=== PATIENT | female | born 2000 | race Caucasian/White ===

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

== ENCOUNTER 2020-01-08 15:32 | Emergency (ER) | payer MEDICAID | END 2020-01-08 15:50 | disposition left against medical advice (07) | LOC: JD.ED 15:32 | DX: Z53.21 Procedure and treatment not carried out due to patient leaving prior to being seen by health care provider (principal) ==

== ENCOUNTER 2020-07-29 13:37 | Emergency (ER) | payer MEDICAID ==
[2020-07-29 13:53] VITALS: BP 123/78; PULSE 103
[2020-07-29] MEDS ORDERED: Acetaminophen 325 MG Tab PO ONE (14:06)
--- NOTE | 2020-07-29 15:08 | EDM.PDOC ---
ED HPI GENERAL MEDICAL PROBLEM - General Chief Complaint: ENT Problem Stated Complaint: BACK PAIN Time Seen by Provider: 07/29/20 13:40 Source of Information: Reports: Patient, RN Notes Reviewed History Limitations: Reports: No Limitations - History of Present Illness INITIAL COMMENTS - FREE TEXT/NARRATIVE: Patient is a 20-year-old female presenting to the emergency department with complaints of pain and swelling to her right tongue as well as upper back pain. She states upon waking this morning, she had pain to her tongue. She found teeth castle on her tongue and progressively throughout the day bruising has developed. She also has upper back pain with movement. She is had no known injury. Patient is 8 weeks . Denies any history of seizures. States last evening her 3-year-old son slept with her and that he did not alert her of any abnormal occurrences. Upon waking this morning, she felt normal other than the tongue pain and back pain. 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 Psychiatric History: Reports: Anxiety, Depression - Infectious Disease History Infectious Disease History: Reports: Herpes - Past Surgical History GI Surgical History: Reports: EGD Social & Family History - Family History Family Medical History: No Pertinent Family History - Tobacco Use Tobacco Use Status *Q: Current Every Day Tobacco User Years of Tobacco use: 2 Packs/Tins Daily: 0.2 - Caffeine Use Caffeine Use: Reports: None - Recreational Drug Use Recreational Drug Use: No - Living Situation & Occupation Living situation: Reports: Other ED ROS ENT - Review of Systems Review Of Systems: See Below Constitutional: Reports: No Symptoms. Denies: Fever, Chills, Fatigue HEENT: Reports: Other (Tongue pain and swelling) Respiratory: Reports: No Symptoms Cardiovascular: Reports: No Symptoms Endocrine: Reports: No Symptoms GI/Abdominal: Reports: No Symptoms : Reports: No Symptoms Musculoskeletal: Reports: Back Pain (Upper) Skin: Reports: No Symptoms Neurological: Reports: No Symptoms. Denies: Dizziness, Headache, Seizure Psychiatric: Reports: No Symptoms Hematologic/Lymphatic: Reports: No Symptoms Immunologic: Reports: No Symptoms ED EXAM, ENT - Physical Exam Exam: See Below General Appearance: Alert, WD/WN, No Apparent Distress Eye Exam: Bilateral Eye: Normal Inspection, PERRL Mouth/Throat: Normal Gums, Normal Lips, Normal Oropharynx, Normal Teeth, Tongue Swelling (Right side with mild ecchymosis and teeth castle) Head: Atraumatic, Normocephalic Respiratory/Chest: No Respiratory Distress, Lungs Clear, Normal Breath Sounds, No Accessory Muscle Use, Chest Non-Tender Cardiovascular: Normal Peripheral Pulses, Regular Rate, Rhythm, No Edema, No Gallop, No JVD, No Murmur, No Rub GI/Abdominal: Normal Bowel Sounds, Soft, Non-Tender, No Organomegaly, No Distention, No Abnormal Bruit, No Mass Back: Normal Inspection, Full Range of Motion Neurological: Alert, Oriented, CN II-XII Intact, Normal Cognition, Normal Gait, Normal Reflexes, No Motor/Sensory Deficits Psychiatric: Normal Affect, Normal Mood Skin: Warm, Dry, Intact, Normal Color, No Rash Course - Vital Signs Last Recorded V/S: Last Vital Signs Temp 99.5 F 07/29/20 13:46 Pulse 103 H 07/29/20 13:46 Resp 16 07/29/20 13:46 BP 123/78 07/29/20 13:46 Pulse Ox 98 07/29/20 13:46 - Orders/Labs/Meds Labs: Laboratory Tests 07/29/20 07/29/20 07/29/20 Range/Units 14:17 14:17 14:17 WBC 12.28 H (3.98-10.04) K/mm3 RBC 4.22 (3.98-5.22) M/mm3 Hgb 12.4 (11.2-15.7) gm/dl Hct 37.7 (34.1-44.9) % MCV 89.3 D (79.4-94.8) fl MCH 29.4 (25.6-32.2) pg MCHC 32.9 (32.2-35.5) g/dl RDW Std Deviation 42.0 (36.4-46.3) fL Plt Count 346 D (182-369) K/mm3 MPV 9.8 (9.4-12.3) fl Neut % (Auto) 80.0 H (34.0-71.1) % Lymph % (Auto) 13.2 L (19.3-51.7) % [place] % (Auto) 5.8 (4.7-12.5) % Eos % (Auto) 0.3 L (0.7-5.8) Baso % (Auto) 0.2 (0.1-1.2) % Neut # (Auto) 9.83 H (1.56-6.13) K/mm3 Lymph # (Auto) 1.62 (1.18-3.74) K/mm3 [place] # (Auto) 0.71 H (0.24-0.36) K/mm3 Eos # (Auto) 0.04 (0.04-0.36) K/mm3 Baso # (Auto) 0.02 (0.01-0.08) K/mm3 Sodium 139 (136-145) mEq/L Potassium 4.0 (3.5-5.1) mEq/L Chloride 103 (98-107) mEq/L Carbon Dioxide 24 (21-32) mEq/L Anion Gap 16.0 H (5-15) BUN 7 (7-18) mg/dL Creatinine 0.9 (0.55-1.02) mg/dL Est Cr Clr Drug Dosing 82.48 mL/min Estimated GFR (MDRD) > 60 (>60) mL/min BUN/Creatinine Ratio 7.8 L (14-18) Glucose 89 (74-106) mg/dL Lactic Acid 1.2 (0.4-2.0) mmol/L Calcium 8.9 (8.5-10.1) mg/dL Total Bilirubin 0.2 (0.2-1.0) mg/dL AST 23 (15-37) U/L ALT 22 (14-59) U/L Alkaline Phosphatase 45 L (46-116) U/L C-Reactive Protein 0.8 (<1.0) mg/dL Total Protein 7.2 (6.4-8.2) g/dl Albumin 2.9 L (3.4-5.0) g/dl Globulin 4.3 gm/dL Albumin/Globulin Ratio 0.7 L (1-2) Urine Color (Yellow) Urine Appearance (Clear) Urine pH (5.0-8.0) Ur Specific [place] (1.005-1.030) Urine Protein (Negative) Urine Glucose (UA) (Negative) Urine Ketones (Negative) Urine Occult Blood (Negative) Urine Nitrite (Negative) Urine Bilirubin (Negative) Urine Urobilinogen (0.2-1.0) Ur Leukocyte Esterase (Negative) Urine RBC (0-5) /hpf Urine WBC (0-5) /hpf Ur Squamous Epith Cells (0-5) /hpf Urine Bacteria (FEW) /hpf Urine Mucus (FEW) /hpf 07/29/20 Range/Units 14:30 WBC (3.98-10.04) K/mm3 RBC (3.98-5.22) M/mm3 Hgb (11.2-15.7) gm/dl Hct (34.1-44.9) % MCV (79.4-94.8) fl MCH (25.6-32.2) pg MCHC (32.2-35.5) g/dl RDW Std Deviation (36.4-46.3) fL Plt Count (182-369) K/mm3 MPV (9.4-12.3) fl Neut % (Auto) (34.0-71.1) % Lymph % (Auto) (19.3-51.7) % [place] % (Auto) (4.7-12.5) % Eos % (Auto) (0.7-5.8) Baso % (Auto) (0.1-1.2) % Neut # (Auto) (1.56-6.13) K/mm3 Lymph # (Auto) (1.18-3.74) K/mm3 [place] # (Auto) (0.24-0.36) K/mm3 Eos # (Auto) (0.04-0.36) K/mm3 Baso # (Auto) (0.01-0.08) K/mm3 Sodium (136-145) mEq/L Potassium (3.5-5.1) mEq/L Chloride (98-107) mEq/L Carbon Dioxide (21-32) mEq/L Anion Gap (5-15) BUN (7-18) mg/dL Creatinine (0.55-1.02) mg/dL Est Cr Clr Drug Dosing mL/min Estimated GFR (MDRD) (>60) mL/min BUN/Creatinine Ratio (14-18) Glucose (74-106) mg/dL Lactic Acid (0.4-2.0) mmol/L Calcium (8.5-10.1) mg/dL Total Bilirubin (0.2-1.0) mg/dL AST (15-37) U/L ALT (14-59) U/L Alkaline Phosphatase (46-116) U/L C-Reactive Protein (<1.0) mg/dL Total Protein (6.4-8.2) g/dl Albumin (3.4-5.0) g/dl Globulin gm/dL Albumin/Globulin Ratio (1-2) Urine Color Yellow (Yellow) Urine Appearance Clear (Clear) Urine pH 7.0 (5.0-8.0) Ur Specific [place] 1.020 (1.005-1.030) Urine Protein Negative (Negative) Urine Glucose (UA) Negative (Negative) Urine Ketones Negative (Negative) Urine Occult Blood Negative (Negative) Urine Nitrite Negative (Negative) Urine Bilirubin Negative (Negative) Urine Urobilinogen 0.2 (0.2-1.0) Ur Leukocyte Esterase Negative (Negative) Urine RBC 0-5 (0-5) /hpf Urine WBC 0-5 (0-5) /hpf Ur Squamous Epith Cells 0-5 (0-5) /hpf Urine Bacteria Few (FEW) /hpf Urine Mucus Few (FEW) /hpf Meds: Medications Discontinued Medications Generic Name Dose Route Start Last Admin Trade Name Freq PRN Reason Stop Dose Admin Acetaminophen 650 mg 07/29/20 14:06 07/29/20 14:11 Tylenol PO 07/29/20 14:07 650 mg NOW ONE Administration - Re-Assessments/Exams Free Text/Narrative Re-Assessment/Exam: Patient is a 20-year-old female presenting to the emergency department with complaints of tongue pain and swelling and upper back pain. She awoke with these complaints this morning. She has no history of seizures and there was no witnessed seizure activity. She states that her 3-year-old son slept with her last evening and did not alert her to anything abnormal. She felt well upon waking. She is 8 weeks , therefore head CT would not be recommended in the absence of any witnessed seizure activity and no headache. A complete blood work including CBC, CMP, CRP, lactic acid, and urinalysis. If she did have a seizure, we should expect to see an elevation in her lactic acid. 07/29/20 15:10 Hematology was grossly unremarkable. Lactic acid was normal at 1.2. I will recommend routine Tylenol administration for discomfort as well as sucking on ice. Recommend follow-up with her primary care provider on Friday to discuss today's occurrences and for ongoing monitoring. Discussed return precautions. Discharge instructions as documented. Departure - Departure Time of Disposition: 15:15 Disposition: Home, Self-Care 01 Condition: Good Clinical Impression: Tongue biting Back pain Qualifiers: Back pain location: thoracic back pain Chronicity: acute Back pain laterality: unspecified Qualified Code(s): M54.6 - Pain in thoracic spine - Discharge Information *PRESCRIPTION DRUG MONITORING PROGRAM REVIEWED*: No *COPY OF PRESCRIPTION DRUG MONITORING REPORT IN PATIENT ADOLFO: No Instructions: Back Pain in Referrals: Jaclyn Maloney PA-C [Primary Care Provider] - Forms: ED Department Discharge Additional Instructions: You were seen in the emergency department today for evaluation with regards to tongue pain and swelling after likely biting her tongue as well as upper back pain. Your exam aside from the swelling of your tongue was found to be normal. Blood work was completed and found to be overall normal. There are no suggestions within your blood work that you had a seizure. Since you are and there was no witnessed seizure activity or significant concern for seizure activity, head CT was not completed today as to avoid risk of radiating your unborn child. Recommend routine Tylenol administration. You may suck on ice cubes to help alleviate the swelling of the tongue. Recommend follow-up with your primary care provider on Friday to discuss today's occurrences and the possibility of testing for possible seizure activity that does not include radiation such as an EEG. Return to ER for any new or worsening symptoms of concern. Sepsis Event Note (ED) - Evaluation Sepsis Screening Result: No Definite Risk
== END 2020-07-29 15:25 | disposition home or self-care (01) ==
LOC: JD.ED 13:37
DX: S00.532A Contusion of oral cavity, initial encounter (principal); M54.6 Pain in thoracic spine; Z72.0 Tobacco use; X58.XXXA Exposure to other specified factors, initial encounter
CPT/HCPCS: 36415; 80053; 81001; 83605; 85025; 86140; 99283; A9270

== ENCOUNTER 2020-09-03 22:26 | Emergency (ER) | payer MEDICAID ==
[2020-09-03 22:36] VITALS: BP 120/80; PULSE 97
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
== END 2020-09-04 00:48 | disposition home or self-care (01) ==
LOC: JD.ED 22:26
DX: O99.891 Other specified diseases and conditions complicating pregnancy (principal); R55 Syncope and collapse; R10.32 Left lower quadrant pain; Z72.0 Tobacco use; Z3A.14 14 weeks gestation of pregnancy
CPT/HCPCS: 36415; 80053; 80306; 80307; 82550; 82962; 83735; 84100; 85007; 85027; 99283; 99284

== ENCOUNTER 2020-09-21 00:22 | Emergency (ER) | payer MEDICAID ==
[2020-09-21 00:31] VITALS: BP 125/90; PULSE 127
[2020-09-21] MEDS ORDERED: Ondansetron 4 MG/2 ML SDV IVPUSH ONE (01:01)
[2020-09-21] MEDS ORDERED: Lactated Ringers 1,000 ML IV ONE (01:01)
--- NOTE | 2020-09-21 03:50 | EDM.PDOC ---
ED HPI GENERAL MEDICAL PROBLEM - General Chief Complaint: Gastrointestinal Problem Stated Complaint: [facility] Time Seen by Provider: 09/21/20 03:40 - History of Present Illness INITIAL COMMENTS - FREE TEXT/NARRATIVE: 22-year-old female brought into the emergency room by EMS with an initial complaint of nausea and vomiting. Upon arrival to the emergency department she was started on IV fluids given some Zofran and felt quite a bit better. Because of emergencies in the emergency room it took me a while to get to the patient by the time I got to where she was feeling okay and states that she has been having problems with seizures for the last several months. She has an appointment to see a neurologist in November. The patient is currently 17 weeks gestation. She is a 3 para 2 1 premature twin delivery fetuses did not survive then she has 1 child living with her. The patient does not remember what happened tonight. Patient has had multiple episodes of not remembering and possible seizure activity. She has a video of 1 of these episodes that possibly could represent a seizure. The patient has not had an EEG. Her knurling machine operator, Dr. Lara has advised her to see a neurologist. Then she sees Elisa Maloney in the clinic as well. On her last visit here she was given a specific person and phone number to follow-up with however it is not clear to me that the patient is followed up with this. At the time my exam the patient is doing okay lab work is nondiagnostic and she has no specific complaints. - Related Data Allergies Allergy/AdvReac Type Severity Reaction Status Date / Time No Known Allergies Allergy Verified 09/21/20 00:31 Home Meds: Home Meds Pnv No.95/Ferrous Fum/Folic AC [ Caplet] 1 tab PO DAILY 07/29/20 [History] Past Medical History HEENT History: Reports: Impaired Vision Other HEENT History: wears glasses Gastrointestinal History: Reports: Gastritis WARP DRAWER History: Reports: , Spontaneous Other WARP DRAWER History: A0 Psychiatric History: Reports: Anxiety, Depression - Infectious Disease History Infectious Disease History: Reports: Herpes - Past Surgical History HEENT Surgical History: Reports: Oral Surgery GI Surgical History: Reports: EGD Female Surgical History: Reports: Section, Other (See Below) Other Female Surgeries/Procedures: fetoscopic laser surgery Social & Family History - Family History Family Medical History: No Pertinent Family History - Tobacco Use Tobacco Use Status *Q: Current Every Day Tobacco User Years of Tobacco use: 2 Packs/Tins Daily: 0.5 - Caffeine Use Caffeine Use: Reports: None - Recreational Drug Use Recreational Drug Use: No - Living Situation & Occupation Living situation: Reports: Single, with Significant Other (Fianc), with Family (Son) Occupation: Unemployed ED ROS GENERAL - Review of Systems Review Of Systems: See Below Constitutional: Reports: No Symptoms HEENT: Reports: No Symptoms Respiratory: Reports: No Symptoms Cardiovascular: Reports: No Symptoms Endocrine: Reports: No Symptoms GI/Abdominal: Reports: No Symptoms : Reports: No Symptoms Musculoskeletal: Reports: No Symptoms Skin: Reports: No Symptoms Neurological: Reports: Seizure (Possible seizure-like episodes) Psychiatric: Reports: No Symptoms Hematologic/Lymphatic: Reports: No Symptoms Immunologic: Reports: No Symptoms ED EXAM - Physical Exam Exam: See Below Exam Limited By: No Limitations General Appearance: Alert, No Apparent Distress Ears: Normal External Exam, Normal Canal, Hearing Grossly Normal, Normal TMs Nose: Normal Inspection, Normal Mucosa, No Blood Throat/Mouth: Normal Inspection, Normal Lips, Normal Teeth, Normal Gums, Normal Oropharynx, Normal Voice, No Airway Compromise Head: Atraumatic, Normocephalic Neck: Normal Inspection, Supple, Non-Tender, Full Range of Motion Respiratory/Chest: No Respiratory Distress, Lungs Clear, Normal Breath Sounds, No Accessory Muscle Use, Chest Non-Tender Cardiovascular: Normal Peripheral Pulses, Regular Rate, Rhythm, No Edema, No Gallop, No JVD, No Murmur, No Rub GI/Abdominal Exam: Normal Bowel Sounds, Soft, Non-Tender, No Organomegaly, No Distention, No Abnormal Bruit, No Mass, Pelvis Stable, Other (Fundal height is consistent with dates) Heart Tones: Present Heart Tones per Min: 150 Course - Vital Signs Last Recorded V/S: Last Vital Signs Temp 36.1 C 09/21/20 00:29 Pulse 127 H 09/21/20 00:29 Resp 16 09/21/20 00:29 BP 125/90 09/21/20 00:29 Pulse Ox 95 09/21/20 00:29 - Orders/Labs/Meds Labs: Laboratory Tests 09/21/20 09/21/20 09/21/20 Range/Units 01:18 01:18 01:30 WBC 13.00 H (3.98-10.04) K/mm3 RBC 4.04 (3.98-5.22) M/mm3 Hgb 12.5 (11.2-15.7) gm/dl Hct 36.1 (34.1-44.9) % MCV 89.4 (79.4-94.8) fl MCH 30.9 (25.6-32.2) pg MCHC 34.6 (32.2-35.5) g/dl RDW Std Deviation 43.0 (36.4-46.3) fL Plt Count 282 (182-369) K/mm3 MPV 10.1 (9.4-12.3) fl Neut % (Auto) 78.8 H (34.0-71.1) % Lymph % (Auto) 14.2 L (19.3-51.7) % [place] % (Auto) 5.1 (4.7-12.5) % Eos % (Auto) 1.2 (0.7-5.8) Baso % (Auto) 0.2 (0.1-1.2) % Neut # (Auto) 10.25 H (1.56-6.13) K/mm3 Lymph # (Auto) 1.85 (1.18-3.74) K/mm3 [place] # (Auto) 0.66 H (0.24-0.36) K/mm3 Eos # (Auto) 0.16 (0.04-0.36) K/mm3 Baso # (Auto) 0.02 (0.01-0.08) K/mm3 Manual Slide Review Normal smear Sodium 137 (136-145) mEq/L Potassium 3.8 (3.5-5.1) mEq/L Chloride 104 (98-107) mEq/L Carbon Dioxide 22 (21-32) mEq/L Anion Gap 14.8 (5-15) BUN 10 (7-18) mg/dL Creatinine 0.8 (0.55-1.02) mg/dL Est Cr Clr Drug Dosing TNP Estimated GFR (MDRD) > 60 (>60) mL/min BUN/Creatinine Ratio 12.5 L (14-18) Glucose 85 (74-106) mg/dL Calcium 8.4 L (8.5-10.1) mg/dL Total Bilirubin 0.2 (0.2-1.0) mg/dL AST 15 (15-37) U/L ALT 20 (14-59) U/L Alkaline Phosphatase 38 L (46-116) U/L Total Protein 7.4 (6.4-8.2) g/dl Albumin 3.1 L (3.4-5.0) g/dl Globulin 4.3 gm/dL Albumin/Globulin Ratio 0.7 L (1-2) Urine Color Yellow (Yellow) Urine Appearance Clear (Clear) Urine pH 6.0 (5.0-8.0) Ur Specific [place] > or = 1.030 (1.005-1.030) Urine Protein 1+ H (Negative) Urine Glucose (UA) Negative (Negative) Urine Ketones Trace H (Negative) Urine Occult Blood Negative (Negative) Urine Nitrite Negative (Negative) Urine Bilirubin Negative (Negative) Urine Urobilinogen 0.2 (0.2-1.0) Ur Leukocyte Esterase Negative (Negative) Urine RBC Not seen (0-5) /hpf Urine WBC 0-5 (0-5) /hpf Ur Squamous Epith Cells 5-10 H (0-5) /hpf Urine Bacteria Few (FEW) /hpf Urine Mucus Few (FEW) /hpf Urine Opiates Screen (PVQEYT=819) Ur Buprenorphine Scrn (CUTOFF=10) Ur Oxycodone Screen (AOZ6QU=009) Urine Methadone Screen (UPRZOE=315) Ur Propoxyphene Screen (CSLNYY=131) Ur Barbiturates Screen (QKWWEJ=364) Ur Tricyclics Screen (JSVMWL=870) Ur Phencyclidine Scrn (CUTOFF=25) Ur Amphetamine Screen (IMKIOJ=526) U Methamphetamines Scrn (VJGYPY=285) U Benzodiazepines Scrn (CTNXSL=673) U Cocaine Metab Screen (VQDBMH=208) U Marijuana (THC) Screen (CUTOFF=50) 09/21/20 Range/Units 01:30 WBC (3.98-10.04) K/mm3 RBC (3.98-5.22) M/mm3 Hgb (11.2-15.7) gm/dl Hct (34.1-44.9) % MCV (79.4-94.8) fl MCH (25.6-32.2) pg MCHC (32.2-35.5) g/dl RDW Std Deviation (36.4-46.3) fL Plt Count (182-369) K/mm3 MPV (9.4-12.3) fl Neut % (Auto) (34.0-71.1) % Lymph % (Auto) (19.3-51.7) % [place] % (Auto) (4.7-12.5) % Eos % (Auto) (0.7-5.8) Baso % (Auto) (0.1-1.2) % Neut # (Auto) (1.56-6.13) K/mm3 Lymph # (Auto) (1.18-3.74) K/mm3 [place] # (Auto) (0.24-0.36) K/mm3 Eos # (Auto) (0.04-0.36) K/mm3 Baso # (Auto) (0.01-0.08) K/mm3 Manual Slide Review Sodium (136-145) mEq/L Potassium (3.5-5.1) mEq/L Chloride (98-107) mEq/L Carbon Dioxide (21-32) mEq/L Anion Gap (5-15) BUN (7-18) mg/dL Creatinine (0.55-1.02) mg/dL Est Cr Clr Drug Dosing Estimated GFR (MDRD) (>60) mL/min BUN/Creatinine Ratio (14-18) Glucose (74-106) mg/dL Calcium (8.5-10.1) mg/dL Total Bilirubin (0.2-1.0) mg/dL AST (15-37) U/L ALT (14-59) U/L Alkaline Phosphatase (46-116) U/L Total Protein (6.4-8.2) g/dl Albumin (3.4-5.0) g/dl Globulin gm/dL Albumin/Globulin Ratio (1-2) Urine Color (Yellow) Urine Appearance (Clear) Urine pH (5.0-8.0) Ur Specific [place] (1.005-1.030) Urine Protein (Negative) Urine Glucose (UA) (Negative) Urine Ketones (Negative) Urine Occult Blood (Negative) Urine Nitrite (Negative) Urine Bilirubin (Negative) Urine Urobilinogen (0.2-1.0) Ur Leukocyte Esterase (Negative) Urine RBC (0-5) /hpf Urine WBC (0-5) /hpf Ur Squamous Epith Cells (0-5) /hpf Urine Bacteria (FEW) /hpf Urine Mucus (FEW) /hpf Urine Opiates Screen Negative (RWPZDM=351) Ur Buprenorphine Scrn Negative (CUTOFF=10) Ur Oxycodone Screen Negative (ZKP6DO=254) Urine Methadone Screen Negative (WEILMU=454) Ur Propoxyphene Screen Negative (TZDJDL=129) Ur Barbiturates Screen Negative (WRVZGC=426) Ur Tricyclics Screen Negative (GONZBR=019) Ur Phencyclidine Scrn Negative (CUTOFF=25) Ur Amphetamine Screen Negative (IVSHUZ=225) U Methamphetamines Scrn Negative (JZIXPE=774) U Benzodiazepines Scrn Negative (UGMWOL=108) U Cocaine Metab Screen Negative (SIUJVL=963) U Marijuana (THC) Screen Negative (CUTOFF=50) Meds: Medications Discontinued Medications Generic Name Dose Route Start Last Admin Trade Name Freq PRN Reason Stop Dose Admin Lactated Ringer's 1,000 mls @ 999 mls/hr 09/21/20 01:01 09/21/20 01:35 Ringers, Lactated IV 09/21/20 02:01 999 mls/hr .BOLUS ONE Administration Ondansetron HCl 4 mg 09/21/20 01:01 09/21/20 01:26 Ondansetron 4 Mg/2 Ml Sdv IVPUSH 09/21/20 01:02 4 mg ONETIME ONE Administration - Re-Assessments/Exams Free Text/Narrative Re-Assessment/Exam: 09/21/20 04:04 Evaluation is nondiagnostic. Skin a mild leukocytosis most likely due to her whether or not she had a seizure is hard to say. The patient states she has neurology appointment in November cannot find anything any sooner but she is going to call around and look. I have discussed this with the patient and have explained to her no uncertain terms she can follow-up with her regular healthcare provider who can schedule her for an EEG which neurology will need in the first place and if indeed looks like she is got an epileptic problem can be started on antiseizure medication. Patient voices understanding with this and will follow up with her regular healthcare provider. Departure - Departure Time of Disposition: 04:05 Disposition: Home, Self-Care 01 Clinical Impression: Nausea and vomiting, Unspecified abnormal involuntary movements - Discharge Information Referrals: PCP,None [Primary Care Provider] - Forms: ED Department Discharge Additional Instructions: Return to the emergency room with any questions problems or worsening symptoms. Follow-up in the clinic with Elisa Maloney. She should be able to schedule you for a EEG. And if this shows seizure activity perhaps get you into see a neurologist sooner than November. Do not drive or operate a motor vehicle until you are cleared to do so by a neurologist. Push lots of fluids. Sepsis Event Note (ED) - Evaluation Sepsis Screening Result: No Definite Risk - Focused Exam Vital Signs: Vital Signs Temp Pulse Resp BP Pulse Ox 09/21/20 00:29 36.1 C 127 H 16 125/90 95
== END 2020-09-21 04:20 | disposition home or self-care (01) ==
LOC: JD.ED 00:22
DX: R11.2 Nausea with vomiting, unspecified (principal); R25.9 Unspecified abnormal involuntary movements; Z72.0 Tobacco use
CPT/HCPCS: 36415; 80053; 80306; 81001; 85025; 96374; 99284; J2405; J7120; 99283

== ENCOUNTER 2020-10-02 17:42 | Emergency (ER) | payer MEDICAID ==
[2020-10-02] MEDS ORDERED: levETIRAcetam 500 MG in Sodium Chloride 0.9% 100 ML IV ONE (17:51)
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
[2020-10-02 20:04] VITALS: BP 97/58; PULSE 97
--- NOTE | 2020-10-02 20:07 | CR ---
Right ankle: 4 views of the right ankle were obtained. Ankle mortise is symmetric. No acute fracture or other bony abnormality is appreciated. Impression: 1. No abnormality is identified on right ankle exam. Diagnostic code #1
== END 2020-10-02 20:00 | disposition home or self-care (01) ==
LOC: JD.ED 17:42
DX: O99.891 Other specified diseases and conditions complicating pregnancy (principal); R56.9 Unspecified convulsions; O9A.212 Injury, poisoning and certain other consequences of external causes complicating pregnancy, second trimester; S93.401A Sprain of unspecified ligament of right ankle, initial encounter; S09.93XA Unspecified injury of face, initial encounter; O99.332 Smoking (tobacco) complicating pregnancy, second trimester; F17.210 Nicotine dependence, cigarettes, uncomplicated; Z79.899 Other long term (current) drug therapy; Z3A.18 18 weeks gestation of pregnancy; W06.XXXA Fall from bed, initial encounter
CPT/HCPCS: 36415; 73610; 80053; 80306; 81001; 83605; 85025; 96365; 99285; J1953; 99284

== ENCOUNTER 2020-10-13 00:46 | Emergency (ER) | payer MEDICAID ==
[2020-10-13 01:03] VITALS: BP 115/81; PULSE 109
--- NOTE | 2020-10-13 01:34 | EDM.PDOC ---
ED HPI GENERAL MEDICAL PROBLEM - General Chief Complaint: OXYACETYLENE CUTTER Problem Stated Complaint: 20 WKS & FELL Time Seen by Provider: 10/13/20 01:24 - History of Present Illness INITIAL COMMENTS - FREE TEXT/NARRATIVE: 20-year-old female presents the emergency room who is 20 weeks for evaluation after falling secondary to a seizure. Patient is not concerned about her seizures. The patient is being followed closely by neurology and they just adjusted her medication. They stopped whenever antiepileptic medications and decrease the dose of her Keppra from 1000 mg twice a day to 750 mg twice a day. The patient's been under a lot of stress today and did have a seizure. She does not have any pain or concerns at this time but is 20 weeks and is concerned about the baby. She is not having any cramping or contractions no bleeding or other vaginal discharge no burning or frequency with urination. Right Hip Pain Score (Numeric/FACES): 5 - Related Data Allergies Allergy/AdvReac Type Severity Reaction Status Date / Time No Known Allergies Allergy Verified 10/13/20 00:56 Home Meds: Home Meds Pnv No.95/Ferrous Fum/Folic AC [ Caplet] 1 tab PO DAILY 07/29/20 [History] levETIRAcetam [Keppra] 750 mg PO BID 10/02/20 [History] Past Medical History HEENT History: Reports: Impaired Vision Other HEENT History: wears glasses Gastrointestinal History: Reports: Gastritis OXYACETYLENE CUTTER History: Reports: , Spontaneous Other OXYACETYLENE CUTTER History: Psychiatric History: Reports: Anxiety, Depression - Infectious Disease History Infectious Disease History: Reports: Herpes - Past Surgical History HEENT Surgical History: Reports: Oral Surgery GI Surgical History: Reports: EGD Female Surgical History: Reports: Section, Other (See Below) Other Female Surgeries/Procedures: fetoscopic laser surgery Social & Family History - Family History Family Medical History: No Pertinent Family History - Tobacco Use Tobacco Use Status *Q: Never Tobacco User Second Hand Smoke Exposure: No - Caffeine Use Caffeine Use: Reports: None - Recreational Drug Use Recreational Drug Use: No - Living Situation & Occupation Living situation: Reports: Single, with Significant Other (Fianc), with Family (Son) Occupation: Unemployed ED ROS PEDIATRIC - Review of Systems Review Of Systems: See Below Constitutional: Reports: No Symptoms HEENT: Reports: No Symptoms Respiratory: Reports: No Symptoms Cardiovascular: Reports: No Symptoms GI/Abdominal: Reports: No Symptoms : Reports: No Symptoms Musculoskeletal: Reports: No Symptoms Skin: Reports: No Symptoms Neurological: Reports: No Symptoms Psychiatric: Reports: No Symptoms Hematologic/Lymphatic: Reports: No Symptoms Immunologic: Reports: No Symptoms ED EXAM, GENERAL (PEDS) - Physical Exam Exam: See Below Exam Limited By: No Limitations General Appearance: No Apparent Distress Eyes: Bilateral: Normal Appearance Ear Exam (Abbreviated): Normal External Exam, Normal Canal, Hearing Grossly Normal, Normal TMs Nose Exam: Normal Inspection, Normal Mucousa, No Blood Mouth/Throat: Normal Inspection, Normal Gums, Normal Lips, Normal Oropharynx, Normal Teeth Head: Atraumatic, Normocephalic Neck: Normal Inspection, Supple, Non-Tender, Full Range of Motion. No: Tender Midline, Thyromegaly, Tender Lateral Respiratory/Chest: No Respiratory Distress, Lungs Clear, Normal Breath Sounds, No Accessory Muscle Use, Chest Non-Tender Cardiovascular: Normal Peripheral Pulses, Regular Rate, Rhythm, No Edema, No Gallop, No JVD, No Murmur, No Rub GI/Abdominal Exam: Normal Bowel Sounds, Soft, Non-Tender, No Organomegaly, No Distention, No Abnormal Bruit, No Mass, Pelvis Stable, Other (Fundal height is consistent with dates heart tones are in the 150s and the patient is noted fair amount of activity after having her heart tones found.) Rectal Exam: Normal Exam, Normal Rectal Tone Back Exam: Normal Inspection, Full Range of Motion, Vertebral Tenderness. No: CVA Tenderness (R), Muscle Spasm Neurological: Alert, Oriented, CN II-XII Intact, Normal Cognition, No Motor/Sensory Deficits Psychiatric: Normal Affect, Normal Mood Skin Exam: Warm, Dry, Intact Course - Vital Signs Last Recorded V/S: Last Vital Signs Temp 36.5 C 10/13/20 00:56 Pulse 109 H 10/13/20 00:56 Resp 18 10/13/20 00:56 BP 115/81 10/13/20 00:56 Pulse Ox 96 10/13/20 00:56 - Re-Assessments/Exams Free Text/Narrative Re-Assessment/Exam: 10/13/20 02:10 The patient has been followed closely by OB and by her neurologist. Further evaluation at this point does not seem beneficial the fetus is active. Departure - Departure Time of Disposition: 02:11 Disposition: Home, Self-Care 01 Clinical Impression: Seizure disorder during in second trimester - Discharge Information Referrals: Kimberly Lara MD [Primary Care Provider] - Forms: ED Department Discharge Additional Instructions: Return to the emergency room with any questions problems or worsening symptoms. Follow-up with your OB as scheduled and as needed. Follow-up with your neurologist as scheduled. Please quit smoking, you have made good progress so far. Sepsis Event Note (ED) - Evaluation Sepsis Screening Result: No Definite Risk - Focused Exam Vital Signs: Vital Signs Temp Pulse Resp BP Pulse Ox 10/13/20 00:56 36.5 C 109 H 18 115/81 96
== END 2020-10-13 02:22 | disposition home or self-care (01) ==
LOC: JD.ED 00:46
DX: O99.352 Diseases of the nervous system complicating pregnancy, second trimester (principal); G40.909 Epilepsy, unspecified, not intractable, without status epilepticus; Z3A.20 20 weeks gestation of pregnancy
CPT/HCPCS: 99283

== ENCOUNTER 2020-10-21 10:38 | Emergency (ER) | payer MEDICAID ==
[2020-10-21 10:47] VITALS: BP 112/82; PULSE 112
[2020-10-21] MEDS ORDERED: levETIRAcetam 1,000 MG in Sodium Chloride 0.9% 100 ML IV ONE (11:17)
[2020-10-21] MEDS ORDERED: Ondansetron 4 MG/2 ML SDV IVPUSH ONE (11:18)
[2020-10-21] MEDS ORDERED: Sodium Chloride 0.9% 1,000 ML IV ONE (11:19)
--- NOTE | 2020-10-21 11:46 | EDM.PDOC ---
ED HPI GENERAL MEDICAL PROBLEM - General Chief Complaint: Neurological Problem Stated Complaint: [facility] Time Seen by Provider: 10/21/20 10:59 Source of Information: Reports: Patient History Limitations: Reports: No Limitations, Other (ED vital signs reveal a temp of 98.8, pulse of 112, respiratory rate 18, blood pressure 112/82, pulse ox 94% on room air) - History of Present Illness INITIAL COMMENTS - FREE TEXT/NARRATIVE: 20-year-old female presents to the emergency department today by way of [facility] with a seizure. Per the EMS report, the patient was sleeping this morning and her boyfriend and roommate heard a yell come from her room. When they went in they witnessed her stiff and rigid and this lasted approximately 2 minutes. EMS was called and when they arrived the patient was alert. The patient was not incontinent of bowel or bladder. And the patient was able to ambulate into the emergency department from the ambulance bay. Of note the patient is 20 weeks . Per her history she was diagnosed with seizure disorder after becoming . She has seen a neurologist, Dr. Hernandez, at [facility] in [place]. She is currently prescribed Keppra 1000 mg twice daily. She was recently seen in the emergency department 9 days ago with reports of a seizure and has not seen her neurologist since her last seizure. Since the previous seizure 9 days ago her neurologist has increased her Keppra from 750 mg twice daily to 1000 mg twice daily. She states she has not taken her Keppra dose yet this morning. Oral/Mouth Pain Score (Numeric/FACES): 4 - Related Data Allergies Allergy/AdvReac Type Severity Reaction Status Date / Time No Known Allergies Allergy Verified 10/21/20 10:47 Home Meds: Home Meds Pnv No.95/Ferrous Fum/Folic AC [ Caplet] 1 tab PO DAILY 07/29/20 [History] levETIRAcetam [Keppra] 750 mg PO BID 10/02/20 [History] levETIRAcetam [Keppra] 1,000 mg PO BID #30 tablet 10/21/20 [Rx] levETIRAcetam [Keppra] 250 mg PO BID #30 tablet 10/21/20 [Rx] Past Medical History HEENT History: Reports: Impaired Vision Other HEENT History: wears glasses Gastrointestinal History: Reports: Gastritis MEDART OPERATOR History: Reports: , Spontaneous Other MEDART OPERATOR History: Psychiatric History: Reports: Anxiety, Depression - Infectious Disease History Infectious Disease History: Reports: Herpes - Past Surgical History HEENT Surgical History: Reports: Oral Surgery GI Surgical History: Reports: EGD Female Surgical History: Reports: Section, Other (See Below) Other Female Surgeries/Procedures: fetoscopic laser surgery Social & Family History - Family History Family Medical History: No Pertinent Family History - Caffeine Use Caffeine Use: Reports: None - Living Situation & Occupation Living situation: Reports: Single, with Significant Other (Fianc), with Family (Son) Occupation: Unemployed ED ROS GENERAL - Review of Systems Review Of Systems: Comprehensive ROS is negative, except as noted in HPI. - Physical Exam Exam: See Below Exam Limited By: No Limitations General Appearance: Alert, WD/WN, No Apparent Distress Eye Exam: Bilateral Eye: EOMI, PERRL Ears: Normal External Exam, Hearing Grossly Normal Nose: Normal Inspection Throat/Mouth: Normal Inspection, Normal Lips, Normal Voice, No Airway Compromise, Evidence of Tongue Biting (Superficial laceration noted to the right lateral tongue) Head Exam: Atraumatic, Normocephalic Neck: Normal Inspection, Supple Respiratory/Chest: No Respiratory Distress, Lungs Clear, Normal Breath Sounds, No Accessory Muscle Use, Chest Non-Tender Cardiovascular: Normal Peripheral Pulses, Regular Rate, Rhythm, No Edema, No Murmur GI/Abdominal: Normal Bowel Sounds, Soft, Non-Tender, No Distention (Female) Exam: Deferred Rectal (Female) Exam: Deferred Neuro Exam (Abbreviated): Alert, Oriented, CN II-XII Intact, Normal Cognition Back Exam: Normal Inspection, Full Range of Motion Extremities: Normal Inspection, Normal Range of Motion, Non-Tender, No Pedal Edema, Normal Capillary Refill Psychiatric: Normal Affect, Normal Mood Skin Exam: Warm, Dry, Intact, Normal Color, No Rash Course - Vital Signs Text/Narrative:: 20-year-old female who is 20 weeks presents to the emergency department via [facility] with a history of a seizure x1 this morning lasting approximately 2 minutes. Patient was asleep when her boyfriend and roommate heard her yell from the next room and they went in and witnessed her body stiff and rigid for approximately 2 minutes. They did call [facility] and the patient was alert at that time patient was able to ambulate into the emergency department from the ambulance bay. She does not appear to be post ictal. She denies any loss of bowel or bladder during the seizure. She is alert and oriented. Full neuro assessment is unremarkable. She denies any blurred vision or double vision. She denies any recent fever, chills, nausea, vomiting or diarrhea. She states she is nauseated at this time. She is 20 weeks and has denied a healthy other than the onset of a seizure disorder. She states she does feel the baby moving. Currently is gianni moreno Keppra 1000 mg twice daily. This was increased since having her last seizure 9 days ago. Patient also did bite the right side of her tongue this morning. The superficial laceration noted and it does not need surgical repair. I have ordered labs to include a Keppra level, Keppra 1000 mg IV x1 dose, IV fluids and Zofran. I have also ordered for nursing staff to obtain heart tones. Once I have lab work back I will call the neurologist injection machine operator at [facility]. Last Recorded V/S: Last Vital Signs Temp 98.8 F 10/21/20 10:43 Pulse 112 H 10/21/20 10:43 Resp 18 10/21/20 10:43 BP 112/82 10/21/20 10:43 Pulse Ox 94 L 10/21/20 10:43 - Orders/Labs/Meds Orders: Active Orders 24 hr Category Date Time Status Heart Tones [RC] ASDIRECTED Care 10/21/20 11:21 Active LEVETIRACETAM, S [REF] Stat Lab 10/21/20 11:16 Ordered Labs: Laboratory Tests 10/21/20 10/21/20 Range/Units 12:00 12:00 WBC 12.25 H (3.98-10.04) K/mm3 RBC 3.66 L (3.98-5.22) M/mm3 Hgb 11.4 (11.2-15.7) gm/dl Hct 34.1 (34.1-44.9) % MCV 93.2 (79.4-94.8) fl MCH 31.1 (25.6-32.2) pg MCHC 33.4 (32.2-35.5) g/dl RDW Std Deviation 44.9 (36.4-46.3) fL Plt Count 277 (182-369) K/mm3 MPV 9.5 (9.4-12.3) fl Neut % (Auto) 79.9 H (34.0-71.1) % Lymph % (Auto) 13.2 L (19.3-51.7) % Rosebud % (Auto) 4.0 L (4.7-12.5) % Eos % (Auto) 1.1 (0.7-5.8) Baso % (Auto) 0.2 (0.1-1.2) % Neut # (Auto) 9.79 H (1.56-6.13) K/mm3 Lymph # (Auto) 1.62 (1.18-3.74) K/mm3 Rosebud # (Auto) 0.49 H (0.24-0.36) K/mm3 Eos # (Auto) 0.13 (0.04-0.36) K/mm3 Baso # (Auto) 0.02 (0.01-0.08) K/mm3 Manual Slide Review Abnormal smear Sodium 137 (136-145) mEq/L Potassium 4.3 (3.5-5.1) mEq/L Chloride 104 (98-107) mEq/L Carbon Dioxide 23 (21-32) mEq/L Anion Gap 14.3 (5-15) BUN 9 (7-18) mg/dL Creatinine 0.8 (0.55-1.02) mg/dL Est Cr Clr Drug Dosing 92.79 mL/min Estimated GFR (MDRD) > 60 (>60) mL/min BUN/Creatinine Ratio 11.3 L (14-18) Glucose 81 (74-106) mg/dL Calcium 8.2 L (8.5-10.1) mg/dL Magnesium 1.9 (1.8-2.4) mg/dl Total Bilirubin 0.3 (0.2-1.0) mg/dL AST 13 L (15-37) U/L ALT 14 (14-59) U/L Alkaline Phosphatase 41 L (46-116) U/L Total Protein 6.7 (6.4-8.2) g/dl Albumin 2.7 L (3.4-5.0) g/dl Globulin 4.0 gm/dL Albumin/Globulin Ratio 0.7 L (1-2) Meds: Medications Discontinued Medications Generic Name Dose Route Start Last Admin Trade Name Velasquez PRN Reason Stop Dose Admin Levetiracetam 1,000 mg/ Sodium 110 mls @ 400 mls/hr 10/21/20 11:17 10/21/20 11:34 Chloride IV 10/21/20 11:31 400 mls/hr ONETIME ONE Administration Sodium Chloride 1,000 mls @ 1,000 mls/hr 10/21/20 11:19 10/21/20 11:30 Normal Saline IV 10/21/20 12:18 1,000 mls/hr ONETIME ONE Administration Levetiracetam 250 mg/ Sodium 102.5 mls @ 400 mls/hr 10/21/20 12:43 10/21/20 13:34 Chloride IV 10/21/20 12:57 400 mls/hr ONETIME ONE Administration Ondansetron HCl 4 mg 10/21/20 11:18 10/21/20 11:31 Ondansetron 4 Mg/2 Ml Sdv IVPUSH 10/21/20 11:19 4 mg ONETIME ONE Administration - Re-Assessments/Exams Free Text/Narrative Re-Assessment/Exam: 10/21/20 12:48 Hematology reveals a WBC of 12.25, hemoglobin 11.4, hematocrit 34.1, platelet count 277, chemistry reveals a sodium of 137, potassium 4.3, anion gap 14.3, BUN 9, creatinine 0.8, glucose 81, calcium 8.2, magnesium 1.9, AST 13, ALT 14, alk phos [address] Aceves, neurologist on-call at [facility] in [place]. I discussed the case with him and he recommends increasing the Keppra dose from 1000 mg twice daily to 1250 mg twice daily. She will then need to follow-up with Dr. Hernandez within the week. I discussed this with the patient and she is agreeable to this. She also states that her nausea is much better after receiving Zofran. Departure - Departure Time of Disposition: 14:28 Disposition: Home, Self-Care 01 Condition: Good Clinical Impression: Seizure disorder during in second trimester - Discharge Information Prescriptions: levETIRAcetam [Keppra] 1,000 mg PO BID #30 tablet levETIRAcetam [Keppra] 250 mg PO BID #30 tablet Instructions: Seizure, Adult, [id number] Referrals: Jaclyn Maloney PA-C [Primary Care Provider] - Forms: ED Department Discharge Additional Instructions: You were seen in the emergency department this morning with complaints of a seizure that lasted approximately 2 minutes. While in the emergency department, labs were completed and you received IV fluids, Zofran for nausea, and 1250 mg of Keppra. I spoke with the neurologist injection machine operator at [facility] in [place] and he recommended that we increase your Keppra dose to 1250 mg twice daily. You did receive your morning dose here in the emergency department. A prescription for your new dose of Keppra has been sent to your pharmacy and you will need to pick this up. You will need to follow-up with your neurologist, Dr. Mckenzie Hernandez, within a week for reevaluation of your seizures. Should your condition worsen or change, do not hesitate returning to the emergency department. Sepsis Event Note (ED) - Evaluation Sepsis Screening Result: No Definite Risk - Focused Exam Vital Signs: Vital Signs Temp Pulse Resp BP Pulse Ox 10/21/20 10:43 98.8 F 112 H 18 112/82 94 L - My Orders Last 24 Hours: My Active Orders 10/21/20 11:16 LEVETIRACETAM, S [REF] Stat 10/21/20 11:21 Heart Tones [RC] ASDIRECTED - Assessment/Plan Last 24 Hours: My Active Orders 10/21/20 11:16 LEVETIRACETAM, S [REF] Stat 10/21/20 11:21 Heart Tones [RC] ASDIRECTED
[2020-10-21] MEDS ORDERED: levETIRAcetam 500 MG Tab PO STA (15:01)
== END 2020-10-21 14:40 | disposition home or self-care (01) ==
LOC: JD.ED 10:38
DX: O99.352 Diseases of the nervous system complicating pregnancy, second trimester (principal); G40.909 Epilepsy, unspecified, not intractable, without status epilepticus; Z79.899 Other long term (current) drug therapy; Z3A.20 20 weeks gestation of pregnancy
CPT/HCPCS: 80053; 80177; 83735; 85025; 96365; 96366; 96375; 99284; A9270; J1953; J2405; J7030; 36415; 99283

== ENCOUNTER 2020-10-23 22:48 | Emergency (ER) | payer MEDICAID ==
[2020-10-23 23:03] VITALS: BP 112/75; PULSE 92
--- NOTE | 2020-10-24 00:05 | EDM.PDOC ---
ED HPI GENERAL MEDICAL PROBLEM - General Chief Complaint: General Stated Complaint: poss seizure Time Seen by Provider: 10/23/20 23:37 Source of Information: Reports: Patient, Significant Other (Byfriend, on the phone + video of event per her friend) History Limitations: Reports: No Limitations - History of Present Illness INITIAL COMMENTS - FREE TEXT/NARRATIVE: Ms. Cooley is a pleasant 20-year-old woman who now presents to the ED after possibly suffering a generalized tonic-clonic seizure at home. According to the patient, she states that she felt "weird" around 21:30, then, the next thing she knew, she woke up on the kitchen floor. I spoke with the patient's boyfriend over the phone, and he told me that he came into the kitchen, and found the patient standing next to the freezer, with the freezer door open, pointing. She then screamed and fell. He stated that he caught her, and laid her on the floor. He states that she appeared to be shaking on her right side. He stated that her eyes were open, and then her pupils appeared to be dilated. He stated that she was breathing hard. He states that the entire episode lasted about 1.5 minutes. He stated that the patient then woke up, and return to normal lucidity within about 2 minutes. The patient's boyfriend also stated that a friend of theirs happened to come by just after her episode began, and he asked her to video the episode. I was able to view the video, and saw that the patient was lying on her side on the kitchen floor, breathing heavily, but I did not see any tremulousness, shaking, or tonic-clonic motion. The patient states that she bit the right side of her tongue and abraded the lateral aspect of her left ankle, but denies any other injuries, or incontinence of bowel or bladder. The patient has been seen in this ED on numerous occasions for similar episodes, including most recently 2 days ago, on 10/21/2020. Prior work-ups, including 2 days ago, have always been completely normal, including a lack of hyperglycemia or elevated CPK, which one would ordinarily expect to be elevated following a generalized tonic-clonic seizure. The patient states that she saw her Neurologist on 09/22/2020, and was prescribed both Keppra and Lamictal, however, for reasons unclear, an EEG was not performed or scheduled. Since then, the patient's Keppra has been increased, however, the Lamictal has been discontinued. She states that she has been compliant with the Keppra. Despite this, however, the frequency of the patient's seizure-like events appears to be increasing. The patient is also approximately 21 weeks 5 days gestation, G3, P0201, with an NEIL of 02/28/2021. She is requesting that a heart rate be checked. Here in the ED tonight, the patient is found to be hemodynamically stable, afebrile, saturating 100% on room air. She appears to be comfortable, in no acute distress. The patient states that she got only 4 hours of sleep last night, but otherwise denies having a recent fever, chills, sore throat, ear pain, nasal or sinus congestion, cough, dyspnea, chest pain, palpitations, nausea, vomiting, constipation, diarrhea, abdominal pain, urinary symptoms, recent weight gain or weight loss, recent bloody bowel movements or black bowel movements, recent joint aches, headaches, or rashes. I reviewed the PMHx/PSHx/SocHx, which was reviewed with the patient by the RN. The patient's PCP is SYLVIA Pyle. Her Neurologist is Dr. Mckenzie Hernandez. Her CEMENT BASED MATERIALS PUMP TENDER is Dr. Kimberly Lara. - Related Data Allergies Allergy/AdvReac Type Severity Reaction Status Date / Time No Known Allergies Allergy Verified 10/23/20 23:03 Home Meds: Home Meds Pnv No.95/Ferrous Fum/Folic AC [ Caplet] 1 tab PO DAILY 07/29/20 [History] levETIRAcetam [Keppra] 1,500 mg PO BID 10/23/20 [History] Past Medical History HEENT History: Reports: Impaired Vision Other HEENT History: wears glasses Gastrointestinal History: Reports: Gastritis CEMENT BASED MATERIALS PUMP TENDER History: Reports: , Spontaneous Other CEMENT BASED MATERIALS PUMP TENDER History: Psychiatric History: Reports: Anxiety, Depression - Infectious Disease History Infectious Disease History: Reports: Herpes - Past Surgical History HEENT Surgical History: Reports: Oral Surgery GI Surgical History: Reports: EGD Female Surgical History: Reports: Section, Other (See Below) Other Female Surgeries/Procedures: fetoscopic laser surgery Social & Family History - Family History Family Medical History: No Pertinent Family History - Caffeine Use Caffeine Use: Reports: None - Living Situation & Occupation Living situation: Reports: Single, with Significant Other (Fianc), with Family (Son) Occupation: Unemployed ED ROS GENERAL - Review of Systems Review Of Systems: Comprehensive ROS is negative, except as noted in HPI. ED EXAM, GENERAL - Physical Exam Exam: See Below Exam Limited By: No Limitations General Appearance: Alert, WD/WN, No Apparent Distress Eye Exam: Bilateral Eye: EOMI, Normal Inspection Ears: Normal External Exam, Hearing Grossly Normal Nose: Normal Inspection Throat/Mouth: Normal Inspection, Normal Lips, Normal Teeth, Normal Gums, Normal Voice, No Airway Compromise, Other (small laceration distal right tongue) Head: Atraumatic, Normocephalic Neck: Normal Inspection, Supple, Non-Tender, Full Range of Motion Respiratory/Chest: No Respiratory Distress, Lungs Clear, Normal Breath Sounds, No Accessory Muscle Use Cardiovascular: Normal Peripheral Pulses, Regular Rate, Rhythm, No Edema, No Gallop, No JVD, No Murmur, No Rub Peripheral Pulses: 3+: Radial (L), Radial (R) GI/Abdominal: Normal Bowel Sounds, Soft, Non-Tender, No Organomegaly, No Distention, No Abnormal Bruit, Other (Gravid uterus consistent with dates) Back Exam: Normal Inspection, Full Range of Motion, NT Extremities: Normal Range of Motion, No Pedal Edema, Normal Capillary Refill, Other (Small abrasion over the lateral left ankle) Neurological: Alert, Oriented, CN II-XII Intact, Normal Cognition, No Motor/Sensory Deficits Psychiatric: Normal Affect Skin Exam: Warm, Dry, Intact, Normal Color, No Rash Course - Vital Signs Last Recorded V/S: Last Vital Signs Temp 36.9 C 10/23/20 22:59 Pulse 92 10/23/20 22:59 Resp 18 10/23/20 22:59 BP 112/75 10/23/20 22:59 Pulse Ox 100 10/23/20 22:59 - Re-Assessments/Exams Free Text/Narrative Re-Assessment/Exam: 10/24/20 00:01 As above, the patient may have suffered another generalized tonic-clonic seizure this evening, despite being compliant with her Keppra. She bit the right side of her tongue and abraded the lateral aspect of her left ankle, however, I am concerned that these may be pseudoseizures, for tonight, as in the past, she recovered to normal neurologic activity within about 2 minutes of the event. Additionally, on the video that I was shown, while she was breathing heavily, there was no visible tonic-clonic activity. Lastly, on prior events, she has never had hyperglycemia or an elevated CPK level, which one would expect following a generalized tonic-clonic seizure. Because her prior work-ups, including just 2 days ago, have always been unremarkable, I am not recommending a repeat work-up tonight. The patient agrees, stating that she just wanted to have heart rate checked, which is normal at 163. I offered to provide her her evening dose of Keppra, but she prefers to take her own at home. Departure - Departure Time of Disposition: 00:03 Disposition: Home, Self-Care 01 Condition: Good Clinical Impression: Seizure-like activity, Second trimester - Discharge Information *PRESCRIPTION DRUG MONITORING PROGRAM REVIEWED*: Not Applicable *COPY OF PRESCRIPTION DRUG MONITORING REPORT IN PATIENT ADOLFO: Not Applicable Instructions: Seizure, Adult, [id number] Referrals: Jaclyn Maloney PA-C [Primary Care Provider] - Mckenzie Hernandez MD [Ordering Only Provider] - Kimberly Lara MD [Physician] - Forms: ED Department Discharge Additional Instructions: Being witnessedYou were seen in the emergency room after having seizure-like activity for about a minute and a half at home. Your heart rate is 163 beats per minute, which is normal for your gestational age. We recommend that you continue to take your current medications as prescribed. We recommend that you notify the office of your Neurologist, Dr. Mckenzie Hernandez, in the morning, of your ER visit. If any other problems, please do not hesitate to return to the ER. Sepsis Event Note (ED) - Evaluation Sepsis Screening Result: No Definite Risk - Focused Exam Vital Signs: Vital Signs Temp Pulse Resp BP Pulse Ox 10/23/20 22:59 36.9 C 92 18 112/75 100
== END 2020-10-24 00:12 | disposition home or self-care (01) ==
LOC: JD.ED 22:48
DX: O99.891 Other specified diseases and conditions complicating pregnancy (principal); R25.9 Unspecified abnormal involuntary movements; S01.512A Laceration without foreign body of oral cavity, initial encounter; Z79.899 Other long term (current) drug therapy; Z3A.21 21 weeks gestation of pregnancy; X58.XXXA Exposure to other specified factors, initial encounter
CPT/HCPCS: 99283; 99284

== ENCOUNTER 2021-02-02 05:41 | Inpatient (IN) | payer MEDICAID ==
[~2021-02-02 05:41] MED LIST: Sodium Chloride 0.9% 10 ML Syringe FLUSH PRN; ceFAZolin 2 GM in Premix Bag 1 BAG IV ONE
[2021-02-02] MEDS ORDERED: Citric Acid/Sodium Citrate Solution 30 ML Cup PO ONE (06:00)
[2021-02-02] MEDS: Lactated Ringers 1,000 ML IV SCH ×2 (06:33→07:38)
[2021-02-02] MEDS ORDERED: Phenylephrine 1% 10 MG/ML SDV ONE (06:52)
[2021-02-02] MEDS ORDERED: Sodium Chloride 0.9% 100 ML ONE (06:53)
[2021-02-02] MEDS ORDERED: Oxytocin 10 Units/1 ML SDV ONE (06:55)
[2021-02-02] MEDS ORDERED: Lactated Ringers 1,000 ML ONE (06:55)
[2021-02-02] MEDS ORDERED: Bupivacaine 0.5% 30 ML SDV ONE (06:59)
[2021-02-02] MEDS ORDERED: ceFAZolin 2 GM in Premix Bag 1 BAG IV ONE (07:00)
[2021-02-02] MEDS ORDERED: Morphine PF 10 MG/10 ML SDV ONE (07:03)
[2021-02-02] MEDS ORDERED: Ketorolac 30 MG/ML SDV ONE (07:03)
[2021-02-02] MEDS ORDERED: ceFAZolin 1 GM Vial ONE (07:09)
--- NOTE | 2021-02-02 07:26 | PCM.PREANE ---
Preanesthetic Assessment - Procedure Proposed Procedure: repeat - Anesthesia/Transfusion/Family Hx Anesthesia History: Prior Anesthesia Without Reaction Family History of Anesthesia Reaction: No Transfusion History: No Prior Transfusion(s) - Review of Systems General: No Symptoms Pulmonary: No Symptoms Cardiovascular: No Symptoms Gastrointestinal: No Symptoms, Other (GERD) Neurological: Seizure (last seizure 2 nights ago, takes seizure medication, seizures just started during this ), Other Other: Reports: Depression, Anxiety - Physical Assessment NPO Status Date: 02/01/21 NPO Status Time: 22:00 Vital Signs: Last Vital Signs Temp 36.1 C 02/02/21 05:53 Pulse 80 02/02/21 05:53 Resp 14 02/02/21 05:53 BP 110/72 02/02/21 05:53 Pulse Ox 95 02/02/21 05:53 Height: 1.6 m Weight: 71.532 kg ASA Class: 2 Mental Status: Alert & Oriented x3 Airway Class: Mallampati = 2 Dentition: Reports: Normal Dentition, Missing Tooth/Teeth (missing a couple molars) Thyro-Mental Finger Breadths: 3 Mouth Opening Finger Breadths: 3 ROM/Head Extension: Full Lungs: Clear to Auscultation, Normal Respiratory Effort Cardiovascular: Regular Rate, Regular Rhythm - Lab Values: Laboratory Last Values WBC 16.34 K/mm3 (3.98-10.04) H 02/02/21 06:00 RBC 3.60 M/mm3 (3.98-5.22) L 02/02/21 06:00 Hgb 11.0 gm/dl (11.2-15.7) L 02/02/21 06:00 Hct 33.6 % (34.1-44.9) L 02/02/21 06:00 MCV 93.3 fl (79.4-94.8) 02/02/21 06:00 MCH 30.6 pg (25.6-32.2) 02/02/21 06:00 MCHC 32.7 g/dl (32.2-35.5) 02/02/21 06:00 RDW Std Deviation 45.3 fL (36.4-46.3) 02/02/21 06:00 Plt Count 269 K/mm3 (182-369) 02/02/21 06:00 MPV 10.0 fl (9.4-12.3) 02/02/21 06:00 Neut % (Auto) 67.2 % (34.0-71.1) 02/02/21 06:00 Lymph % (Auto) 18.7 % (19.3-51.7) L 02/02/21 06:00 [place] % (Auto) 7.4 % (4.7-12.5) 02/02/21 06:00 Eos % (Auto) 0.2 (0.7-5.8) L 02/02/21 06:00 Baso % (Auto) 0.4 % (0.1-1.2) 02/02/21 06:00 Neut # (Auto) 10.97 K/mm3 (1.56-6.13) H 02/02/21 06:00 Lymph # (Auto) 3.05 K/mm3 (1.18-3.74) 02/02/21 06:00 [place] # (Auto) 1.21 K/mm3 (0.24-0.36) H 02/02/21 06:00 Eos # (Auto) 0.04 K/mm3 (0.04-0.36) 02/02/21 06:00 Baso # (Auto) 0.07 K/mm3 (0.01-0.08) 02/02/21 06:00 - Allergies Allergies/Adverse Reactions: Allergies Allergy/AdvReac Type Severity Reaction Status Date / Time No Known Allergies Allergy Verified 02/02/21 05:52 - Blood Blood Available: No Product(s) Available: None - Anesthesia Plan Pre-Op Medication Ordered: None - Acknowledgements Anesthesia Type Planned: Spinal (with duramorph) Pt an Appropriate Candidate for the Planned Anesthesia: Yes Alternatives and Risks of Anesthesia Discussed w Pt/Guardian: Yes Pt/Guardian Understands and Agrees with Anesthesia Plan: Yes PreAnesthesia Questionnaire HEENT History: Reports: Impaired Vision Other HEENT History: wears glasses Gastrointestinal History: Reports: Gastritis, GERD Genitourinary History: Reports: STD, Other (See Below) Other Genitourinary History: history genital herpes LAST SORTER History: Reports: , Spontaneous Other OB/BYN History: Neurological History: Reports: Seizure, Other (See Below) Other Neuro History: seizures with this , last seizure 2 nights ago per patient. Psychiatric History: Reports: Anxiety, Depression - Infectious Disease History Infectious Disease History: Reports: Herpes - Past Surgical History HEENT Surgical History: Reports: Oral Surgery GI Surgical History: Reports: EGD, Hernia Repair/Other Female Surgical History: Reports: Section, Other (See Below) Other Female Surgeries/Procedures: fetoscopic laser surgery - SUBSTANCE USE Tobacco Use Status *Q: Current Every Day Tobacco User Tobacco Use Within Last Twelve Months: Cigarettes Recreational Drug Use History: No - HOME MEDS Home Medications: Home Meds Pnv No.95/Ferrous Fum/Folic AC [ Caplet] 1 tab PO DAILY 07/29/20 [History] levETIRAcetam [Keppra] 1,500 mg PO BID 10/23/20 [History] Escitalopram Oxalate [Lexapro] 10 mg PO DAILY 12/29/20 [History] lamoTRIgine [LaMICtal] 75 mg PO BID 12/29/20 [History] Acyclovir 400 mg PO BID 02/02/21 [History] - CURRENT (IN HOUSE) MEDS Current Meds: Current Medications Oxytocin/Lactated Ringer's (Pitocin In Lr 10 Units/1,000 Ml) 10 unit in 1,000 mls @ 100 mls/hr IV ASDIRECTED [facility]; Protocol Lactated Ringer's (Ringers, Lactated) 1,000 mls @ 125 mls/hr IV ASDIRECTED [facility] Last Admin: 02/02/21 06:33 Dose: 125 mls/hr Documented by: Sodium Chloride (Sodium Chloride 0.9% 10 Ml Syringe) 10 ml FLUSH ASDIRECTED PRN PRN Reason: Keep Vein Open Discontinued Medications Bupivacaine HCl (Bupivacaine 0.5% 30 Ml Sdv) Confirm Administered Dose 30 ml .ROUTE .STK-MED ONE Stop: 02/02/21 07:00 Cefazolin Sodium (Cefazolin 1 Gm Vial) Confirm Administered Dose 2 gm .ROUTE .ST K-MED ONE Stop: 02/02/21 07:10 Citric Acid/Sodium Citrate (Citric Acid/Sodium Citrate Solution 30 Ml Cup) 30 ml PO ONETIME ONE Stop: 02/02/21 06:01 Cefazolin Sodium/Dextrose 2 gm (/ Premix) 50 mls @ 100 mls/hr IV ONETIME ONE Stop: 02/02/21 01:59 Sodium Chloride (Normal Saline) Confirm Administered Dose 100 mls @ as directed .ROUTE .STK-MED ONE Stop: 02/02/21 06:54 Lactated Ringer's (Ringers, Lactated) Confirm Administered Dose 1,000 mls @ as directed .ROUTE .STK-MED ONE Stop: 02/02/21 06:56 Ketorolac Tromethamine (Ketorolac 30 Mg/Ml Sdv) Confirm Administered Dose 30 mg .ROUTE .STK-MED ONE Stop: 02/02/21 07:04 Morphine Sulfate (Morphine Pf 10 Mg/10 Ml Sdv) Confirm Administered Dose 10 mg .ROUTE .STK-MED ONE Stop: 02/02/21 07:04 Oxytocin (Oxytocin 10 Units/1 Ml Sdv) Confirm Administered Dose 20 unit .ROUTE .STK-MED ONE Stop: 02/02/21 06:56 Phenylephrine HCl (Phenylephrine 1% 10 Mg/Ml Sdv) Confirm Administered Dose 10 mg .ROUTE .STK-MED ONE Stop: 02/02/21 06:53
[2021-02-02] MEDS ORDERED: Metoclopramide 10 MG/2 ML SDV IVPUSH ONE (07:41)
[2021-02-02] MEDS ORDERED: Oxytocin/Lactated Ringers 10 UNIT/1,000 ML BAG IV SCH (08:00)
--- NOTE | 2021-02-02 08:52 | PCM.POSTAN ---
POST ANESTHESIA ASSESSMENT - MENTAL STATUS Mental Status: Alert, Oriented - VITAL SIGNS Vital Signs: Last Vital Signs Temp 36.1 C 02/02/21 08:44 Pulse 55 L 02/02/21 08:44 Resp 19 02/02/21 08:44 BP 104/63 02/02/21 08:44 Pulse Ox 92 L 02/02/21 08:44 - RESPIRATORY Respiratory Status: Respiratory Rate WNL, Airway Patent, O2 Saturation Stable - CARDIOVASCULAR CV Status: Pulse Rate WNL, Blood Pressure Stable - GASTROINTESTINAL GI Status: No Symptoms - PAIN Pain Score: 0 - POST OP HYDRATION Hydration Status: Adequate & Stable
--- NOTE | 2021-02-02 09:04 | PCM.OPNOTE ---
- General Post-Op/Procedure Note Date of Surgery/Procedure: 02/02/21 Operative Procedure(s): repeat section Findings: viable female, vertex, weight 5#5oz, 9/9 at 0815. Pre Op Diagnosis: prior , classical Post-Op Diagnosis: Same Primary Surgeon: Janette Gibson Anesthesia Provider: Lenard Ram Housekeeper Supervisor: Mabel Blanco Fluid Replacement, Intraop: 800 Output, Urine Amount: 300 EBL in mLs: 1,000 Complications: None Condition: Good Free Text/Narrative:: he patient was taken to the operating room where epidural anesthesia was dosed to surgical levels without difficulty. The patient was prepped and draped in the usual sterile fashion in the dorsal supine position with a leftward tilt. A Pfannenstiel skin incision was made with the scalpel and carried through to the underlying layer of fascia. The fascia was incised in the midline and extended laterally using Valverde scissors. Femi clamps were used to elevate the superior aspect of the fascial incision, which was elevated, and the underlying rectus muscles were dissected off bluntly and using Valverde scissors. Attention was then turned to the inferior aspect of the fascial incision, which in similar fashion was grasped with Femi clamps, elevated, and the underlying rectus muscles were dissected off bluntly and using the valverde. The rectus muscles were dissected in the midline. The peritoneum was entered bluntly; this incision was extended superiorly and inferiorly with good visualization of the bladder. The bladder blade was inserted. The vesicouterine peritoneum was identified and entered sharply using Metzenbaum scissors. This incision was extended laterally and the bladder flap was created digitally. The bladder blade was reinserted. The lower uterine segment was incised in a transverse fashion using the scalpel and with digital traction. Clear fluid was noted. The was subsequently delivered by flexing the head to the incision. Body and shoulders followed without difficulty. The cord was clamped and cut. The was subsequently handed to the awaiting plugger whose presence had been requested.. The placenta was delivered spontaneously intact with a three-vessel cord noted. The uterus was exteriorized and cleared of all clots and debris. The uterine incision was repaired in 2 layers using 0 monocryl. Hemostasis was visualized. Hemostasis was visualized bilaterally. The uterus was returned to the abdomen. The uterine incision was reexamined and it was noted to be hemostatic. The pelvis was copiously irrigated. The fascia was closed with 1 PDS suture, and the skin was closed with 3-0 monocryl. Sponge, lap, and instrument counts were correct x2. The patient was stable at the completion of the procedure and was subsequently transferred to the recovery room in stable condition.
[2021-02-02] MEDS ORDERED: Dextrose 5%-Lactated Ringers 1,000 ML IV SCH (11:35)
[2021-02-02] MEDS ORDERED: diphenhydrAMINE 50 MG/ML SDV IVPUSH PRN (11:35)
[2021-02-02] MEDS ORDERED: Acetaminophen 325 MG Tab PO PRN (11:35)
[2021-02-02] MEDS ORDERED: Acetaminophen/oxyCODONE 325-5 MG Tab PO PRN ×2 (11:35)
[2021-02-02] MEDS ORDERED: Naloxone 0.4 MG/ML SDV IVPUSH PRN (11:35)
[2021-02-02] MEDS ORDERED: Ibuprofen 600 MG Tab PO PRN (11:35)
[2021-02-02] MEDS ORDERED: ePHEDrine 50 MG/ML SDV IVPUSH PRN (11:35)
[2021-02-02] MEDS: Ibuprofen 600 MG Tab PO PRN ×2 (17:03→22:44)
[2021-02-02] MEDS ORDERED: levETIRAcetam 500 MG Tab PO SCH (21:00)
[2021-02-02] MEDS: levETIRAcetam 500 MG Tab PO SCH (22:43)
--- NOTE | 2021-02-03 08:32 | PCM.PNPP ---
- General Info Date of Service: 02/03/21 Functional Status: Reports: Pain Controlled - Review of Systems General: Reports: No Symptoms HEENT: Reports: No Symptoms Pulmonary: Reports: No Symptoms Cardiovascular: Reports: No Symptoms Gastrointestinal: Reports: No Symptoms Genitourinary: Reports: No Symptoms Musculoskeletal: Reports: No Symptoms Skin: Reports: No Symptoms Neurological: Reports: No Symptoms Psychiatric: Reports: No Symptoms - General Info Date of Service: 02/03/21 - Patient Data Vital Signs - Most Recent: Last Vital Signs Temp 36.6 C 02/03/21 03:59 Pulse 59 L 02/03/21 03:59 Resp 18 02/03/21 03:59 BP 104/53 L 02/03/21 03:59 Pulse Ox 96 02/03/21 03:59 Weight - Most Recent: 71.532 kg I&O - Last 24 Hours: Intake & Output 02/02/21 02/03/21 02/03/21 22:59 06:59 14:59 Intake Total 1000 Output Total 400 1400 Balance 600 -1400 Lab Results - Last 24 Hours: Laboratory Results - last 24 hr 02/03/21 Range/Units 06:07 WBC 13.20 H (3.98-10.04) K/mm3 RBC 3.25 L (3.98-5.22) M/mm3 Hgb 9.7 L (11.2-15.7) gm/dl Hct 30.7 L (34.1-44.9) % MCV 94.5 (79.4-94.8) fl MCH 29.8 (25.6-32.2) pg MCHC 31.6 L (32.2-35.5) g/dl RDW Std Deviation 45.2 (36.4-46.3) fL Plt Count 215 (182-369) K/mm3 MPV 10.0 (9.4-12.3) fl Neut % (Auto) 68.8 (34.0-71.1) % Lymph % (Auto) 20.3 (19.3-51.7) % [place] % (Auto) 7.6 (4.7-12.5) % Eos % (Auto) 0.6 L (0.7-5.8) Baso % (Auto) 0.2 (0.1-1.2) % Neut # (Auto) 9.08 H (1.56-6.13) K/mm3 Lymph # (Auto) 2.68 (1.18-3.74) K/mm3 [place] # (Auto) 1.00 H (0.24-0.36) K/mm3 Eos # (Auto) 0.08 (0.04-0.36) K/mm3 Baso # (Auto) 0.03 (0.01-0.08) K/mm3 Manual Slide Review Normal smear Med Orders - Current: Current Medications Acetaminophen (Acetaminophen 325 Mg Tab) 650 mg PO Q6H PRN PRN Reason: mild pain or fever Diphenhydramine HCl (Diphenhydramine 50 Mg/Ml Sdv) 25 mg IVPUSH Q6H PRN PRN Reason: Itching or Nausea Ephedrine Sulfate (Ephedrine 50 Mg/Ml Sdv) 5 mg IVPUSH SEECOMMENT PRN PRN Reason: Other Ibuprofen (Ibuprofen 600 Mg Tab) 600 mg PO Q6H PRN PRN Reason: mild pain or fever Last Admin: 02/02/21 22:44 Dose: 600 mg Documented by: Lamotrigine (Lamotrigine 25 Mg Tab.Chew) 75 mg PO BID@1100,2300 [facility] Last Admin: 02/02/21 22:41 Dose: 75 mg Documented by: Levetiracetam (Levetiracetam 500 Mg Tab) 1,500 mg PO BID@1100,2300 [facility] Last Admin: 02/02/21 22:43 Dose: 1,500 mg Documented by: Naloxone HCl (Naloxone 0.4 Mg/Ml Sdv) 0.1 mg IVPUSH SEECOMMENT PRN PRN Reason: Respiratory Depression Oxycodone/Acetaminophen (Acetaminophen/Oxycodone 325-5 Mg Tab) 1 tab PO Q4H PRN PRN Reason: Pain (moderate 4-6) Oxycodone/Acetaminophen (Acetaminophen/Oxycodone 325-5 Mg Tab) 2 tab PO Q4H PRN PRN Reason: Pain (severe 7-10) Discontinued Medications Bupivacaine HCl (Bupivacaine 0.5% 30 Ml Sdv) Confirm Administered Dose 30 ml .ROUTE .STK-MED ONE Stop: 02/02/21 07:00 Last Admin: 02/02/21 08:12 Dose: 20 ml Documented by: Cefazolin Sodium (Cefazolin 1 Gm Vial) Confirm Administered Dose 2 gm .ROUTE .STK-MED ONE Stop: 02/02/21 07:10 Citric Acid/Sodium Citrate (Citric Acid/Sodium Citrate Solution 30 Ml Cup) 30 ml PO ONETIME ONE Stop: 02/02/21 06:01 Last Admin: 02/02/21 07:47 Dose: 30 ml Documented by: Oxytocin/Lactated Ringer's (Pitocin In Lr 10 Units/1,000 Ml) 10 unit in 1,000 mls @ 100 mls/hr IV ASDIRECTED [facility]; Protocol Lactated Ringer's (Ringers, Lactated) 1,000 mls @ 125 mls/hr IV ASDIRECTED [facility] Last Admin: 02/02/21 07:38 Dose: 125 mls/hr Documented by: Cefazolin Sodium/Dextrose 2 gm (/ Premix) 50 mls @ 100 mls/hr IV ONETIME ONE Stop: 02/02/21 01:59 Last Admin: 02/02/21 17:42 Dose: Not Given Documented by: Sodium Chloride (Normal Saline) Confirm Administered Dose 100 mls @ as directed .ROUTE .STK-MED ONE Stop: 02/02/21 06:54 Lactated Ringer's (Ringers, Lactated) Confirm Administered Dose 1,000 mls @ as directed .ROUTE .[facility]-MED ONE Stop: 02/02/21 06:56 Dextrose/Lactated Ringer's (Dextrose 5%-Lactated Ringers) 1,000 mls @ 125 mls/hr IV ASDIRECTED [facility] Stop: 02/02/21 19:34 Last Admin: 02/02/21 12:30 Dose: 125 mls/hr Documented by: Ibuprofen (Ibuprofen 600 Mg Tab) 600 mg PO Q6H PRN PRN Reason: mild pain or fever Ketorolac Tromethamine (Ketorolac 30 Mg/Ml Sdv) Confirm Administered Dose 30 mg .ROUTE .STK-MED ONE Stop: 02/02/21 07:04 Lamotrigine (Lamotrigine 25 Mg Tab.Chew) 75 mg PO BID [facility] Last Admin: 02/02/21 23:16 Dose: Not Given Documented by: Levetiracetam (Levetiracetam 500 Mg Tab) 1,500 mg PO BID [facility] Last Admin: 02/02/21 23:16 Dose: Not Given Documented by: Metoclopramide HCl (Metoclopramide 10 Mg/2 Ml Sdv) 10 mg IVPUSH ONETIME ONE Stop: 02/02/21 07:42 Last Admin: 02/02/21 07:48 Dose: 10 mg Documented by: Morphine Sulfate (Morphine Pf 10 Mg/10 Ml Sdv) Confirm Administered Dose 10 mg .ROUTE .STK-MED ONE Stop: 02/02/21 07:04 Oxytocin (Oxytocin 10 Units/1 Ml Sdv) Confirm Administered Dose 20 unit .ROUTE .STK-MED ONE Stop: 02/02/21 06:56 Phenylephrine HCl (Phenylephrine 1% 10 Mg/Ml Sdv) Confirm Administered Dose 10 mg .ROUTE .STK-MED ONE Stop: 02/02/21 06:53 Sodium Chloride (Sodium Chloride 0.9% 10 Ml Syringe) 10 ml FLUSH ASDIRECTED PRN PRN Reason: Keep Vein Open - Infant Interaction Infant Disposition, : [place] to Nursery Support Person: Significant Other - Recovery Exam Fundal Tone: Firm Fundal Level: 1 Fingerbreadths Below Umbilicus Fundal Placement: Midline Lochia Amount: Small Lochia Color: Rubra/Red Perineum Description: Intact, Minimal Bruising/Swelling Episiotomy/Laceration: None Bladder Status: Voiding Urinary Elimination: Indwelling Catheter - Exam General: Alert, Oriented HEENT: Pupils Equal Neck: Supple Lungs: Clear to Auscultation, Normal Respiratory Effort Cardiovascular: Regular Rate, Regular Rhythm GI/Abdominal Exam: Normal Bowel Sounds, Soft, Non-Tender, No Organomegaly, No Distention, No Abnormal Bruit Extremities: Normal Inspection, Normal Range of Motion, Non-Tender, No Pedal Edema Skin: Warm, Dry Wound/Incisions: Healing Well Neurological: No New Focal Deficit Psy/Mental Status: Alert, Normal Affect - Problem List Review Problem List Initiated/Reviewed/Updated: Yes - My Orders Last 24 Hours: My Active Orders 02/02/21 Lunch Regular Diet [DIET] 02/02/21 11:35 Acetaminophen [TylenoL] 650 mg PO Q6H PRN Acetaminophen/oxyCODONE [Percocet 325-5 MG] 1 tab PO Q4H PRN Acetaminophen/oxyCODONE [Percocet 325-5 MG] 2 tab PO Q4H PRN Naloxone [Narcan] 0.1 mg IVPUSH SEECOMMENT PRN diphenhydrAMINE [Benadryl] 25 mg IVPUSH Q6H PRN ePHEDrine [ePHEDrine sulfate] 5 mg IVPUSH SEECOMMENT PRN 02/02/21 11:35 Communication Order [RC] PER UNIT ROUTINE Communication Order [RC] PER UNIT ROUTINE Communication Order [RC] PER UNIT ROUTINE Notify Provider Intake and Out [RC] ASDIRECTED Vital Signs [RC] 03,,, Assess Lochia [WOMSER] Per Unit Routine Assess Uterine Involution [WOMSER] Per Unit Routine Medication Administration Instruction [OM.PC] Routine 02/02/21 13:30 Ibuprofen [Motrin] 600 mg PO Q6H PRN 02/02/21 23:00 lamoTRIgine 75 mg PO BID@1100,2300 levETIRAcetam [Keppra] 1,500 mg PO BID@1100,2300 02/03/21 09:14 Urinary Catheter Removal [RC] Per Unit Routine - Assessment Assessment:: Doing well. No complaints. Possibly home tomorrow.
[2021-02-03] MEDS: Ibuprofen 600 MG Tab PO PRN ×3 (08:45→23:26)
--- NOTE | 2021-02-03 09:39 | PCM48HPAN ---
Post Anesthesia Note - EVALUATION WITHIN 48HRS OF ANESTHETIC Vital Signs in Normal Range: Yes Patient Participated in Evaluation: Yes Respiratory Function Stable: Yes Airway Patent: Yes Cardiovascular Function Stable: Yes Hydration Status Stable: Yes Pain Control Satisfactory: Yes Nausea and Vomiting Control Satisfactory: Yes Mental Status Recovered: Yes Vital Signs: Last Vital Signs Temp 97.3 F 02/03/21 08:40 Pulse 52 L 02/03/21 08:40 Resp 14 02/03/21 08:40 BP 101/55 L 02/03/21 08:40 Pulse Ox 96 02/03/21 08:40
[2021-02-03] MEDS: levETIRAcetam 500 MG Tab PO SCH ×2 (12:40→23:26)
[2021-02-04] MEDS: Ibuprofen 600 MG Tab PO PRN (07:42)
--- NOTE | 2021-02-04 08:54 | PCM.DCSUM1 ---
Discharge Summary - Hospital Course Diagnosis: Stroke: No - Discharge Data Discharge Date: 02/04/21 Discharge Disposition: Home, Self-Care 01 Condition: Good - Referral to Home Health Primary Care Physician: Kimberly Lara MD - Patient Summary/Data Operative Procedure(s) Performed: repeat section - Patient Instructions Diet: Usual Diet as Tolerated Activity: No Strenuous Activities Activity, Other: pelvic rest Driving: Do Not Drive Showering/Bathing: May Shower Wound/Incision Care: Keep Operative Site/Wound Site Clean and Dry Notify Provider of: Fever, Increased Pain, Swelling and Redness, Drainage, Nausea and/or Vomiting - Discharge Plan *PRESCRIPTION DRUG MONITORING PROGRAM REVIEWED*: No *COPY OF PRESCRIPTION DRUG MONITORING REPORT IN PATIENT ADOLFO: No Home Medications: Home Meds Pnv No.95/Ferrous Fum/Folic AC [ Caplet] 1 tab PO DAILY 07/29/20 [History] levETIRAcetam [Keppra] 1,500 mg PO BID 10/23/20 [History] Escitalopram Oxalate [Lexapro] 10 mg PO DAILY 12/29/20 [History] lamoTRIgine [LaMICtal] 75 mg PO BID 12/29/20 [History] Acyclovir 400 mg PO BID 02/02/21 [History] Patient Handouts: Steps to Quit Smoking - Discharge Summary/Plan Comment DC Time >30 min.: No Total # of Minutes for Discharge Time: 25 - General Info Date of Service: 02/04/21 Functional Status: Reports: Pain Controlled - Review of Systems General: Reports: No Symptoms HEENT: Reports: No Symptoms Pulmonary: Reports: No Symptoms Cardiovascular: Reports: No Symptoms Gastrointestinal: Reports: No Symptoms Genitourinary: Reports: No Symptoms Musculoskeletal: Reports: No Symptoms Skin: Reports: No Symptoms Neurological: Reports: No Symptoms Psychiatric: Reports: No Symptoms - Patient Data Vitals - Most Recent: Last Vital Signs Temp 36.4 C 02/04/21 03:47 Pulse 68 02/04/21 03:47 Resp 15 02/04/21 03:47 BP 105/70 02/04/21 03:47 Pulse Ox 98 02/04/21 03:47 Weight - Most Recent: 71.532 kg I&O - Last 24 hours: Intake & Output 02/03/21 02/04/21 02/04/21 22:59 06:59 14:59 Intake Total 520 Balance 520 Med Orders - Current: Current Medications Acetaminophen (Acetaminophen 325 Mg Tab) 650 mg PO Q6H PRN PRN Reason: mild pain or fever Diphenhydramine HCl (Diphenhydramine 50 Mg/Ml Sdv) 25 mg IVPUSH Q6H PRN PRN Reason: Itching or Nausea Ephedrine Sulfate (Ephedrine 50 Mg/Ml Sdv) 5 mg IVPUSH SEECOMMENT PRN PRN Reason: Other Ibuprofen (Ibuprofen 600 Mg Tab) 600 mg PO Q6H PRN PRN Reason: mild pain or fever Last Admin: 02/04/21 07:42 Dose: 600 mg Documented by: Lamotrigine (Lamotrigine 25 Mg Tab.Chew) 75 mg PO BID@1100,2300 [facility] Last Admin: 02/03/21 23:26 Dose: 75 mg Documented by: Levetiracetam (Levetiracetam 500 Mg Tab) 1,500 mg PO BID@1100,2300 [facility] Last Admin: 02/03/21 23:26 Dose: 1,500 mg Documented by: Naloxone HCl (Naloxone 0.4 Mg/Ml Sdv) 0.1 mg IVPUSH SEECOMMENT PRN PRN Reason: Respiratory Depression Oxycodone/Acetaminophen (Acetaminophen/Oxycodone 325-5 Mg Tab) 1 tab PO Q4H PRN PRN Reason: Pain (moderate 4-6) Oxycodone/Acetaminophen (Acetaminophen/Oxycodone 325-5 Mg Tab) 2 tab PO Q4H PRN PRN Reason: Pain (severe 7-10) Discontinued Medications Bupivacaine HCl (Bupivacaine 0.5% 30 Ml Sdv) Confirm Administered Dose 30 ml .ROUTE .STK-MED ONE Stop: 02/02/21 07:00 Last Admin: 02/02/21 08:12 Dose: 20 ml Documented by: Cefazolin Sodium (Cefazolin 1 Gm Vial) Confirm Administered Dose 2 gm .ROUTE .STK-MED ONE Stop: 02/02/21 07:10 Citric Acid/Sodium Citrate (Citric Acid/Sodium Citrate Solution 30 Ml Cup) 30 ml PO ONETIME ONE Stop: 02/02/21 06:01 Last Admin: 02/02/21 07:47 Dose: 30 ml Documented by: Oxytocin/Lactated Ringer's (Pitocin In Lr 10 Units/1,000 Ml) 10 unit in 1,000 mls @ 100 mls/hr IV ASDIRECTED [facility]; Protocol Lactated Ringer's (Ringers, Lactated) 1,000 mls @ 125 mls/hr IV ASDIRECTED [facility] Last Admin: 02/02/21 07:38 Dose: 125 mls/hr Documented by: Cefazolin Sodium/Dextrose 2 gm (/ Premix) 50 mls @ 100 mls/hr IV ONETIME ONE Stop: 02/02/21 01:59 Last Admin: 02/02/21 17:42 Dose: Not Given Documented by: Sodium Chloride (Normal Saline) Confirm Administered Dose 100 mls @ as directed .ROUTE .STK-MED ONE Stop: 02/02/21 06:54 Lactated Ringer's (Ringers, Lactated) Confirm Administered Dose 1,000 mls @ as directed .ROUTE .STK-MED ONE Stop: 02/02/21 06:56 Dextrose/Lactated Ringer's (Dextrose 5%-Lactated Ringers) 1,000 mls @ 125 mls/hr IV ASDIRECTED [facility] Stop: 02/02/21 19:34 Last Admin: 02/02/21 12:30 Dose: 125 mls/hr Documented by: Ibuprofen (Ibuprofen 600 Mg Tab) 600 mg PO Q6H PRN PRN Reason: mild pain or fever Ketorolac Tromethamine (Ketorolac 30 Mg/Ml Sdv) Confirm Administered Dose 30 mg .ROUTE .STK-MED ONE Stop: 02/02/21 07:04 Lamotrigine (Lamotrigine 25 Mg Tab.Chew) 75 mg PO BID [facility] Last Admin: 02/02/21 23:16 Dose: Not Given Documented by: Levetiracetam (Levetiracetam 500 Mg Tab) 1,500 mg PO BID [facility] Last Admin: 02/02/21 23:16 Dose: Not Given Documented by: Metoclopramide HCl (Metoclopramide 10 Mg/2 Ml Sdv) 10 mg IVPUSH ONETIME ONE Stop: 02/02/21 07:42 Last Admin: 02/02/21 07:48 Dose: 10 mg Documented by: Morphine Sulfate (Morphine Pf 10 Mg/10 Ml Sdv) Confirm Administered Dose 10 mg .ROUTE .STK-MED ONE Stop: 02/02/21 07:04 Oxytocin (Oxytocin 10 Units/1 Ml Sdv) Confirm Administered Dose 20 unit .ROUTE .STK-MED ONE Stop: 02/02/21 06:56 Phenylephrine HCl (Phenylephrine 1% 10 Mg/Ml Sdv) Confirm Administered Dose 10 mg .ROUTE .STK-MED ONE Stop: 02/02/21 06:53 Sodium Chloride (Sodium Chloride 0.9% 10 Ml Syringe) 10 ml FLUSH ASDIRECTED PRN PRN Reason: Keep Vein Open - Exam General: Reports: Alert, Oriented HEENT: Reports: Pupils Equal, Pupils Reactive, EOMI, Mucous Membr. Moist/[place] Neck: Reports: Supple Lungs: Reports: Clear to Auscultation, Normal Respiratory Effort Cardiovascular: Reports: Regular Rate, Regular Rhythm GI/Abdominal Exam: Normal Bowel Sounds, Soft, Non-Tender, No Organomegaly, No Distention, No Abnormal Bruit, No Mass, Pelvis Stable (Female) Exam: Normal External Exam Back Exam: Reports: Normal Inspection, Full Range of Motion Extremities: Normal Inspection, Normal Range of Motion, Non-Tender, No Pedal Edema, Normal Capillary Refill Skin: Reports: Warm, Dry, Intact Wound/Incisions: Reports: Healing Well Neurological: Reports: No New Focal Deficit Psy/Mental Status: Reports: Alert, Normal Affect, Normal Mood
[2021-02-04 09:22] VITALS: BP 108/62; PULSE 78
[2021-02-04] MEDS: levETIRAcetam 500 MG Tab PO SCH (10:51)
== END 2021-02-04 13:10 | disposition home or self-care (01) | DRG 786 ==
LOC: JD.OB 05:41
PROVIDERS: ADMIT Obstetrics & Gynecology; ATTEND Obstetrics & Gynecology
PROC: 10D00Z1 Extraction of Products of Conception, Low, Open Approach (ICD-10-PCS; principal; 2021-02-02)
DX: O34.211 Maternal care for low transverse scar from previous cesarean delivery (principal); O60.14X0 Preterm labor third trimester with preterm delivery third trimester, not applicable or unspecified; O99.62 Diseases of the digestive system complicating childbirth; K21.9 Gastro-esophageal reflux disease without esophagitis; O99.334 Smoking (tobacco) complicating childbirth; R56.9 Unspecified convulsions; O99.892 Other specified diseases and conditions complicating childbirth; F17.210 Nicotine dependence, cigarettes, uncomplicated; O99.344 Other mental disorders complicating childbirth; F32.9 Major depressive disorder, single episode, unspecified; F41.9 Anxiety disorder, unspecified; Z20.822 Contact with and (suspected) exposure to COVID-19; Z79.899 Other long term (current) drug therapy; Z37.0 Single live birth; Z3A.36 36 weeks gestation of pregnancy
CPT/HCPCS: 01961; 36415; 59025; 85025; A9270-GY; J0690; J1885; J2270; J2370; J2590; J2765; J3490; J7120; J7121; U0002

== ENCOUNTER 2021-03-18 21:07 | Emergency (ER) | payer MEDICAID ==
[2021-03-18 21:17] VITALS: BP 124/85; PULSE 94
[2021-03-18] MEDS ORDERED: Sodium Chloride 0.9% 10 ML Syringe FLUSH PRN (21:23)
[2021-03-18] MEDS ORDERED: LORazepam 2 MG/ML SDV IVPUSH ONE (21:25)
[2021-03-18] MEDS ORDERED: Sodium Chloride 0.9% 1,000 ML IV SCH (21:30)
--- NOTE | 2021-03-18 21:31 | EDM.PDOC ---
ED HPI GENERAL MEDICAL PROBLEM - General Chief Complaint: Neurological Problem Stated Complaint: STAS AMB Time Seen by Provider: 03/18/21 21:14 Source of Information: Reports: Patient, EMS History Limitations: Reports: No Limitations - History of Present Illness INITIAL COMMENTS - FREE TEXT/NARRATIVE: The patient presents by [facility] for a seizure. Just prior to arrival she had a bout a 2minute tonic clonic seizure. She has a history of seizures. She is 6 weeks post and not getting very good sleep. She is breast feeding. Her keppra was just increased to 4,000mg daily. She has no fever, chills, cough, chest pain, shortness of breath, abdominal pain, nausea or vomiting. Onset: Sudden Duration: Minutes: Location: Reports: Generalized Severity: Moderate Improves with: Reports: None Worsens with: Reports: None Associated Symptoms: Reports: No Other Symptoms - Related Data Allergies Allergy/AdvReac Type Severity Reaction Status Date / Time No Known Allergies Allergy Verified 02/02/21 05:52 Home Meds: Home Meds levETIRAcetam [Keppra] 4,000 mg PO DAILY 10/23/20 [History] Past Medical History HEENT History: Reports: Impaired Vision Other HEENT History: wears glasses Gastrointestinal History: Reports: Gastritis, GERD Genitourinary History: Reports: STD, Other (See Below) Other Genitourinary History: history genital herpes 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 Psychiatric History: Reports: Anxiety, Depression - Infectious Disease History Infectious Disease History: Reports: Herpes - Past Surgical History HEENT Surgical History: Reports: Oral Surgery GI Surgical History: Reports: EGD, Hernia Repair/Other Female Surgical History: Reports: Section, Other (See Below) Other Female Surgeries/Procedures: fetoscopic laser surgery Social & Family History - Family History Family Medical History: No Pertinent Family History - Tobacco Use Tobacco Use Status *Q: Unknown Ever Used Tobacco - Caffeine Use Caffeine Use: Reports: None - Living Situation & Occupation Living situation: Reports: Single, with Significant Other (Fianc), with Family (Son) Occupation: Unemployed ED ROS GENERAL - Review of Systems Review Of Systems: See Below Constitutional: Reports: No Symptoms HEENT: Reports: No Symptoms Respiratory: Reports: No Symptoms Cardiovascular: Reports: No Symptoms Endocrine: Reports: No Symptoms GI/Abdominal: Reports: No Symptoms : Reports: No Symptoms Musculoskeletal: Reports: No Symptoms Neurological: Reports: Seizure - Physical Exam Exam: See Below Exam Limited By: No Limitations General Appearance: Alert, No Apparent Distress Ears: Normal External Exam Nose: Normal Inspection Head Exam: Atraumatic, Normocephalic Neck: Normal Inspection Respiratory/Chest: No Respiratory Distress, Lungs Clear, Normal Breath Sounds Cardiovascular: Regular Rate, Rhythm, No Edema, No Murmur GI/Abdominal: Soft, Non-Tender, No Organomegaly, No Mass Neuro Exam (Abbreviated): Alert, Oriented, No Motor/Sensory Deficits Course - Vital Signs Last Recorded V/S: Last Vital Signs Temp 98.3 F 03/18/21 21:15 Pulse 94 03/18/21 21:15 Resp 14 03/18/21 21:15 BP 124/85 03/18/21 21:15 Pulse Ox 96 03/18/21 21:15 - Orders/Labs/Meds Orders: Active Orders 24 hr Category Date Time Status Cardiac Monitoring [RC] . DIRECTED Care 03/18/21 21:23 Active Peripheral IV Care [RC] . DIRECTED Care 03/18/21 21:24 Active Sodium Chloride 0.9% [Normal Saline] 1,000 ml Med 03/18/21 21:30 Active IV .BOLUS Sodium Chloride 0.9% [Saline Flush] Med 03/18/21 21:23 Active 10 ml FLUSH ASDIRECTED PRN Peripheral IV Insertion Adult [OM.PC] Stat Oth 03/18/21 21:23 Ordered Medication Orders Sodium Chloride (Normal Saline) 1,000 mls @ 1,000 mls/hr IV .BOLUS ALBIN Last Admin: 03/18/21 21:40 Dose: 1,000 mls/hr Documented by: TRENTON Sodium Chloride (Sodium Chloride 0.9% 10 Ml Syringe) 10 ml FLUSH ASDIRECTED PRN PRN Reason: Keep Vein Open Last Admin: 03/18/21 21:40 Dose: 10 ml Documented by: TRENTON Labs: Laboratory Tests 03/18/21 03/18/21 Range/Units 21:20 21:20 WBC 7.03 (3.98-10.04) K/mm3 RBC 4.26 (3.98-5.22) M/mm3 Hgb 12.6 D (11.2-15.7) gm/dl Hct 38.4 (34.1-44.9) % MCV 90.1 D (79.4-94.8) fl MCH 29.6 (25.6-32.2) pg MCHC 32.8 (32.2-35.5) g/dl RDW Std Deviation 41.9 (36.4-46.3) fL Plt Count 184 (182-369) K/mm3 MPV 11.1 (9.4-12.3) fl Neut % (Auto) 53.5 (34.0-71.1) % Lymph % (Auto) 33.3 (19.3-51.7) % [place] % (Auto) 7.0 (4.7-12.5) % Eos % (Auto) 5.5 (0.7-5.8) Baso % (Auto) 0.4 (0.1-1.2) % Neut # (Auto) 3.76 (1.56-6.13) K/mm3 Lymph # (Auto) 2.34 (1.18-3.74) K/mm3 [place] # (Auto) 0.49 H (0.24-0.36) K/mm3 Eos # (Auto) 0.39 H (0.04-0.36) K/mm3 Baso # (Auto) 0.03 (0.01-0.08) K/mm3 Sodium 140 (136-145) mEq/L Potassium 3.4 L (3.5-5.1) mEq/L Chloride 105 (98-107) mEq/L Carbon Dioxide 23 (21-32) mEq/L Anion Gap 15.4 H (5-15) BUN 6 L (7-18) mg/dL Creatinine 1.0 (0.55-1.02) mg/dL Est Cr Clr Drug Dosing TNP Estimated GFR (MDRD) > 60 (>60) mL/min BUN/Creatinine Ratio 6.0 L (14-18) Glucose 98 (70-99) mg/dL Calcium 8.7 (8.5-10.1) mg/dL Magnesium 1.8 (1.8-2.4) mg/dL Total Bilirubin 0.2 (0.2-1.0) mg/dL AST 34 (15-37) U/L ALT 63 H (14-59) U/L Alkaline Phosphatase 59 (46-116) U/L Total Protein 7.1 (6.4-8.2) g/dl Albumin 3.6 (3.4-5.0) g/dl Globulin 3.5 gm/dL Albumin/Globulin Ratio 1.0 (1-2) Meds: Medications Generic Name Dose Route Start Last Admin Trade Name Freq PRN Reason Stop Dose Admin Sodium Chloride 1,000 mls @ 1,000 mls/hr 03/18/21 21:30 03/18/21 21:40 Normal Saline IV 1,000 mls/hr .BOLUS ALBIN Administration Sodium Chloride 10 ml 03/18/21 21:23 03/18/21 21:40 Sodium Chloride 0.9% 10 Ml Syringe FLUSH 10 ml ASDIRECTED PRN Administration Keep Vein Open Discontinued Medications Generic Name Dose Route Start Last Admin Trade Name Freq PRN Reason Stop Dose Admin Lorazepam 0.5 mg 03/18/21 21:25 03/18/21 21:40 Lorazepam 2 Mg/Ml Sdv IVPUSH 03/18/21 21:26 0.5 mg ONETIME ONE Administration Ondansetron HCl 4 mg 03/18/21 21:40 03/18/21 21:40 Ondansetron 4 Mg/2 Ml Sdv IVPUSH 03/18/21 21:41 4 mg ONETIME ONE Administration - Re-Assessments/Exams Free Text/Narrative Re-Assessment/Exam: 03/18/21 21:31 I ordered an IV NS 1L bolus, ativan 0.5mg IV, and labs. 03/18/21 22:22 Her CBC looks good. Her K is low at 3.4. Her anion gap is elevated at 15.4. Her ALT is elevated at 63. She feels better. She did pump tonight before she left. I will discharge her home and have her talk to her doctor. Departure - Departure Time of Disposition: 22:30 Disposition: Home, Self-Care 01 Condition: Good Clinical Impression: Seizure - Discharge Information *PRESCRIPTION DRUG MONITORING PROGRAM REVIEWED*: Not Applicable *COPY OF PRESCRIPTION DRUG MONITORING REPORT IN PATIENT ADOLFO: Not Applicable Forms: ED Department Discharge Additional Instructions: Take your medications as prescribed. Drink plenty of fluids and try to get enough sleep. Follow up with your doctor this week. Please return if you are worse. Sepsis Event Note (ED) - Evaluation Sepsis Screening Result: No Definite Risk - Focused Exam Vital Signs: Vital Signs Temp Pulse Resp BP Pulse Ox 03/18/21 21:15 98.3 F 94 14 124/85 96 - My Orders Last 24 Hours: My Active Orders 03/18/21 21:23 Cardiac Monitoring [RC] . DIRECTED Sodium Chloride 0.9% [Saline Flush] 10 ml FLUSH ASDIRECTED PRN Peripheral IV Insertion Adult [OM.PC] Stat 03/18/21 21:24 Peripheral IV Care [RC] . DIRECTED 03/18/21 21:30 Sodium Chloride 0.9% [Normal Saline] 1,000 ml IV .BOLUS - Assessment/Plan Last 24 Hours: My Active Orders 03/18/21 21:23 Cardiac Monitoring [RC] . DIRECTED Sodium Chloride 0.9% [Saline Flush] 10 ml FLUSH ASDIRECTED PRN Peripheral IV Insertion Adult [OM.PC] Stat 03/18/21 21:24 Peripheral IV Care [RC] . DIRECTED 03/18/21 21:30 Sodium Chloride 0.9% [Normal Saline] 1,000 ml IV .BOLUS
[2021-03-18] MEDS ORDERED: Ondansetron 4 MG/2 ML SDV IVPUSH ONE (21:40)
== END 2021-03-18 22:30 | disposition home or self-care (01) ==
LOC: JD.ED 21:07
DX: O90.89 Other complications of the puerperium, not elsewhere classified (principal); R56.9 Unspecified convulsions
CPT/HCPCS: 36415; 80053; 83735; 85025; 96374; 96375; 99284; J2060; J2405; J7030

== ENCOUNTER 2021-04-06 17:12 | Emergency (ER) | payer MEDICAID ==
[2021-04-06 17:38] VITALS: BP 114/79; PULSE 96
[2021-04-06] MEDS ORDERED: Sodium Chloride 0.9% 10 ML Syringe FLUSH PRN (17:50)
[2021-04-06] MEDS ORDERED: Sodium Chloride 0.9% 1,000 ML IV STA (17:50)
[2021-04-06] MEDS ORDERED: Ondansetron 4 MG/2 ML SDV IVPUSH ONE (17:50)
[2021-04-06] MEDS ORDERED: LORazepam 2 MG/ML SDV IVPUSH ONE (17:51)
--- NOTE | 2021-04-06 19:36 | EDM.PDOC ---
ED HPI GENERAL MEDICAL PROBLEM - General Chief Complaint: Neurological Problem Stated Complaint: HAVING SEIZURES/VOMITING Time Seen by Provider: 04/06/21 17:35 Source of Information: Reports: Patient, Family History Limitations: Reports: No Limitations - History of Present Illness INITIAL COMMENTS - FREE TEXT/NARRATIVE: The patient presents with a seizure. She has a history of seizures. She is on keppra 2,000mg BID. She sees Dr Hernandez at [facility] in [place]. She just had a baby 7 weeks ago. She thinks she may have had about 5 seizures today. They are generalized tonic clonic seizures that only lasted a minute or two. She has no changes to her medications. She thinks she is getting enough sleep even with a new baby. She does not drink alcohol. She has been eating and drinking okay. She has no fever, chills, cough, congestion, runny nose, chest pain, shortness of breath, abdominal pain, nausea or vomiting. Onset: Sudden Duration: Hour(s): Location: Reports: Generalized Severity: Moderate Improves with: Reports: None Worsens with: Reports: None Associated Symptoms: Reports: No Other Symptoms Back Pain Score (Numeric/FACES): 4 - Related Data Allergies Allergy/AdvReac Type Severity Reaction Status Date / Time No Known Allergies Allergy Verified 04/06/21 17:38 Home Meds: Home Meds levETIRAcetam [Keppra] 2,000 mg PO BID 10/23/20 [History] Past Medical History HEENT History: Reports: Impaired Vision Other HEENT History: wears glasses Gastrointestinal History: Reports: Gastritis, GERD Genitourinary History: Reports: STD, Other (See Below) Other Genitourinary History: history genital herpes 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 Psychiatric History: Reports: Anxiety, Depression - Infectious Disease History Infectious Disease History: Reports: Herpes - Past Surgical History HEENT Surgical History: Reports: Oral Surgery GI Surgical History: Reports: EGD, Hernia Repair/Other Female Surgical History: Reports: Section, Other (See Below) Other Female Surgeries/Procedures: fetoscopic laser surgery Social & Family History - Family History Family Medical History: No Pertinent Family History - Tobacco Use Tobacco Use Status *Q: Current Every Day Tobacco User Years of Tobacco use: 3 Packs/Tins Daily: 0.5 - Caffeine Use Caffeine Use: Reports: None - Recreational Drug Use Recreational Drug Use: No - Living Situation & Occupation Living situation: Reports: Single, with Significant Other (Fianc), with Family (Son) Occupation: Unemployed ED ROS GENERAL - Review of Systems Review Of Systems: See Below Constitutional: Reports: No Symptoms HEENT: Reports: No Symptoms Respiratory: Reports: No Symptoms Cardiovascular: Reports: No Symptoms Endocrine: Reports: No Symptoms GI/Abdominal: Reports: No Symptoms : Reports: No Symptoms Musculoskeletal: Reports: No Symptoms - Physical Exam Exam: See Below Exam Limited By: No Limitations General Appearance: Alert, No Apparent Distress Ears: Normal External Exam Nose: Normal Inspection Head Exam: Atraumatic, Normocephalic Neck: Normal Inspection Respiratory/Chest: No Respiratory Distress, Lungs Clear, Normal Breath Sounds Cardiovascular: Regular Rate, Rhythm, No Edema, No Murmur GI/Abdominal: Soft, Non-Tender, No Organomegaly, No Mass Neuro Exam (Abbreviated): Alert, Oriented, No Motor/Sensory Deficits Course - Vital Signs Last Recorded V/S: Last Vital Signs Temp 99.0 F 04/06/21 17:34 Pulse 96 04/06/21 17:34 Resp 16 04/06/21 17:34 BP 114/79 04/06/21 17:34 Pulse Ox 95 04/06/21 17:34 - Orders/Labs/Meds Orders: Active Orders 24 hr Category Date Time Status Peripheral IV Care [RC] . DIRECTED Care 04/06/21 17:50 Active Sodium Chloride 0.9% [Saline Flush] Med 04/06/21 17:50 Active 10 ml FLUSH ASDIRECTED PRN ED Antiemetic Medication Reflex [OM.PC] Stat Oth 04/06/21 17:50 Ordered Peripheral IV Insertion Adult [OM.PC] Stat Oth 04/06/21 17:50 Ordered Medication Orders Sodium Chloride (Sodium Chloride 0.9% 10 Ml Syringe) 10 ml FLUSH ASDIRECTED PRN PRN Reason: Keep Vein Open Last Admin: 04/06/21 18:12 Dose: 10 ml Documented by: SAMUEL Labs: Laboratory Tests 04/06/21 04/06/21 Range/Units 18:05 18:05 WBC 8.34 (3.98-10.04) K/mm3 RBC 4.59 (3.98-5.22) M/mm3 Hgb 13.4 (11.2-15.7) gm/dl Hct 40.5 (34.1-44.9) % MCV 88.2 (79.4-94.8) fl MCH 29.2 (25.6-32.2) pg MCHC 33.1 (32.2-35.5) g/dl RDW Std Deviation 39.5 (36.4-46.3) fL Plt Count 337 D (182-369) K/mm3 MPV 10.3 (9.4-12.3) fl Neut % (Auto) 87.5 H (34.0-71.1) % Lymph % (Auto) 8.4 L (19.3-51.7) % [place] % (Auto) 3.7 L (4.7-12.5) % Eos % (Auto) 0.1 L (0.7-5.8) Baso % (Auto) 0.1 (0.1-1.2) % Neut # (Auto) 7.29 H (1.56-6.13) K/mm3 Lymph # (Auto) 0.70 L (1.18-3.74) K/mm3 [place] # (Auto) 0.31 (0.24-0.36) K/mm3 Eos # (Auto) 0.01 L (0.04-0.36) K/mm3 Baso # (Auto) 0.01 (0.01-0.08) K/mm3 Sodium 143 (136-145) mEq/L Potassium 3.4 L (3.5-5.1) mEq/L Chloride 108 H (98-107) mEq/L Carbon Dioxide 24 (21-32) mEq/L Anion Gap 14.4 (5-15) BUN 4 L (7-18) mg/dL Creatinine 1.0 (0.55-1.02) mg/dL Est Cr Clr Drug Dosing 74.23 mL/min Estimated GFR (MDRD) > 60 (>60) mL/min BUN/Creatinine Ratio 4.0 L (14-18) Glucose 87 (70-99) mg/dL Calcium 8.3 L (8.5-10.1) mg/dL Magnesium 2.0 (1.8-2.4) mg/dL Total Bilirubin 0.4 (0.2-1.0) mg/dL AST 29 (15-37) U/L ALT 40 (14-59) U/L Alkaline Phosphatase 63 (46-116) U/L Total Protein 7.1 (6.4-8.2) g/dl Albumin 3.7 (3.4-5.0) g/dl Globulin 3.4 gm/dL Albumin/Globulin Ratio 1.1 (1-2) Meds: Medications Generic Name Dose Route Start Last Admin Trade Name Freq PRN Reason Stop Dose Admin Sodium Chloride 10 ml 04/06/21 17:50 04/06/21 18:12 Sodium Chloride 0.9% 10 Ml Syringe FLUSH 10 ml ASDIRECTED PRN Administration Keep Vein Open Discontinued Medications Generic Name Dose Route Start Last Admin Trade Name Freq PRN Reason Stop Dose Admin Sodium Chloride 1,000 mls @ 1,000 mls/hr 04/06/21 17:50 04/06/21 18:08 Normal Saline IV 04/06/21 18:49 1,000 mls/hr .BOLUS STA Administration Lorazepam 1 mg 04/06/21 17:51 04/06/21 18:06 Lorazepam 2 Mg/Ml Sdv IVPUSH 04/06/21 17:52 1 mg ONETIME ONE Administration Ondansetron HCl 4 mg 04/06/21 17:50 04/06/21 18:08 Ondansetron 4 Mg/2 Ml Sdv IVPUSH 04/06/21 17:51 4 mg ONETIME ONE Administration - Re-Assessments/Exams Free Text/Narrative Re-Assessment/Exam: 04/06/21 19:37 I ordered an IV NS 1L bolus, ativan 1mg IV, and labs. Her CBC looks good. Her K was low at 3.4. Her magnesium was normal. 04/06/21 19:45 She is resting now. I called Jerry and he neurologist Dr Hernandez was not on this weekend. I will have her call on Friday. Her mom says she is seeing a specialist in epilepsy on the in [place] because she is having so many seizures. I will discharge her home. Departure - Departure Time of Disposition: 19:50 Disposition: Home, Self-Care 01 Condition: Good Clinical Impression: Seizure - Discharge Information *PRESCRIPTION DRUG MONITORING PROGRAM REVIEWED*: Not Applicable *COPY OF PRESCRIPTION DRUG MONITORING REPORT IN PATIENT ADOLFO: Not Applicable Referrals: PCP,None [Primary Care Provider] - Forms: ED Department Discharge Additional Instructions: Take your medications as prescribed. Call your neurologist on Friday. Please return if you are worse. Sepsis Event Note (ED) - Evaluation Sepsis Screening Result: No Definite Risk - Focused Exam Vital Signs: Vital Signs Temp Pulse Resp BP Pulse Ox 04/06/21 17:34 99.0 F 96 16 114/79 95 - My Orders Last 24 Hours: My Active Orders 04/06/21 17:50 Peripheral IV Care [RC] . DIRECTED Sodium Chloride 0.9% [Saline Flush] 10 ml FLUSH ASDIRECTED PRN ED Antiemetic Medication Reflex [OM.PC] Stat Peripheral IV Insertion Adult [OM.PC] Stat - Assessment/Plan Last 24 Hours: My Active Orders 04/06/21 17:50 Peripheral IV Care [RC] . DIRECTED Sodium Chloride 0.9% [Saline Flush] 10 ml FLUSH ASDIRECTED PRN ED Antiemetic Medication Reflex [OM.PC] Stat Peripheral IV Insertion Adult [OM.PC] Stat
== END 2021-04-06 20:00 | disposition home or self-care (01) ==
LOC: JD.ED 17:12
DX: R56.9 Unspecified convulsions (principal); Z72.0 Tobacco use; Z79.899 Other long term (current) drug therapy
CPT/HCPCS: 36415; 80053; 83735; 85025; 96374; 96375; 99284; J2060; J2405; J7030

== ENCOUNTER 2021-04-09 22:56 | Emergency (ER) | payer MEDICAID ==
[2021-04-09 23:19] VITALS: BP 102/61; PULSE 62
[2021-04-09] MEDS ORDERED: LORazepam 1 MG Tab PO ONE (23:31)
--- NOTE | 2021-04-10 00:28 | EDM.PDOC ---
ED HPI GENERAL MEDICAL PROBLEM - General Chief Complaint: Neurological Problem Stated Complaint: POSS SEIZURE Time Seen by Provider: 04/09/21 23:20 Source of Information: Reports: Patient History Limitations: Reports: No Limitations - History of Present Illness INITIAL COMMENTS - FREE TEXT/NARRATIVE: The patient presents with a possible seizure. She has a history of seizures and she is on max dose of keppra at 2,000mg 2 times per day. She said she woke up this morning not feeling right. She has been having like head zaping type of issues and then a seizure. She was supposed to see her neurologist today but her van could not make it. She had to reschedule. She has no fever, chills, cough, chest pain, shortness of breath, abdominal pain, nausea or vomiting. She did bit her tongue today. She had a baby almost 8 weeks ago. She says she is getting enough sleep. She does not drink. She did not miss any doses of her medications. She has been having more break through seizures lately. Onset: Gradual Duration: Day(s): Location: Reports: Other (rigth side of her tongue) Quality: Reports: Sharp Severity: Mild Improves with: Reports: None Worsens with: Reports: None Associated Symptoms: Reports: No Other Symptoms - Related Data Allergies Allergy/AdvReac Type Severity Reaction Status Date / Time No Known Allergies Allergy Verified 04/06/21 17:38 Home Meds: Home Meds levETIRAcetam [Keppra] 2,000 mg PO BID 10/23/20 [History] Past Medical History HEENT History: Reports: Impaired Vision Other HEENT History: wears glasses Gastrointestinal History: Reports: Gastritis, GERD Genitourinary History: Reports: STD, Other (See Below) Other Genitourinary History: history genital herpes 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 Psychiatric History: Reports: Anxiety, Depression - Infectious Disease History Infectious Disease History: Reports: Herpes - Past Surgical History HEENT Surgical History: Reports: Oral Surgery GI Surgical History: Reports: EGD, Hernia Repair/Other Female Surgical History: Reports: Section, Other (See Below) Other Female Surgeries/Procedures: fetoscopic laser surgery Social & Family History - Family History Family Medical History: No Pertinent Family History - Tobacco Use Tobacco Use Status *Q: Unknown Ever Used Tobacco - Caffeine Use Caffeine Use: Reports: None - Living Situation & Occupation Living situation: Reports: Single, with Significant Other (Fianc), with Family (Son) Occupation: Unemployed ED ROS GENERAL - Review of Systems Review Of Systems: See Below Constitutional: Reports: No Symptoms HEENT: Reports: Other (tongue pain) Respiratory: Reports: No Symptoms Cardiovascular: Reports: No Symptoms Endocrine: Reports: No Symptoms GI/Abdominal: Reports: No Symptoms : Reports: No Symptoms Musculoskeletal: Reports: No Symptoms Skin: Reports: No Symptoms Neurological: Reports: No Symptoms - Physical Exam Exam: See Below Exam Limited By: No Limitations General Appearance: Alert, No Apparent Distress Ears: Normal External Exam Nose: Normal Inspection Throat/Mouth: Other (superficial laceration and abrasion to the right side of her tongue) Head Exam: Atraumatic, Normocephalic Neck: Normal Inspection Respiratory/Chest: No Respiratory Distress, Lungs Clear, Normal Breath Sounds Cardiovascular: Regular Rate, Rhythm, No Edema, No Murmur GI/Abdominal: Soft, Non-Tender, No Organomegaly, No Mass Neuro Exam (Abbreviated): Alert, Oriented, No Motor/Sensory Deficits Course - Vital Signs Last Recorded V/S: Last Vital Signs Temp 98.4 F 04/09/21 23:09 Pulse 62 04/09/21 23:09 Resp 15 04/09/21 23:09 BP 102/61 04/09/21 23:09 Pulse Ox 95 04/09/21 23:09 - Orders/Labs/Meds Orders: Active Orders 24 hr Category Date Time Status Cardiac Monitoring [RC] . DIRECTED Care 04/09/21 23:30 Active Labs: Laboratory Tests 04/09/21 04/09/21 Range/Units 23:45 23:45 WBC 5.50 (3.98-10.04) K/mm3 RBC 4.38 (3.98-5.22) M/mm3 Hgb 12.8 (11.2-15.7) gm/dl Hct 39.0 (34.1-44.9) % MCV 89.0 (79.4-94.8) fl MCH 29.2 (25.6-32.2) pg MCHC 32.8 (32.2-35.5) g/dl RDW Std Deviation 39.8 (36.4-46.3) fL Plt Count 334 (182-369) K/mm3 MPV 10.2 (9.4-12.3) fl Neut % (Auto) 52.3 (34.0-71.1) % Lymph % (Auto) 36.0 (19.3-51.7) % [place] % (Auto) 7.3 (4.7-12.5) % Eos % (Auto) 3.5 (0.7-5.8) Baso % (Auto) 0.5 (0.1-1.2) % Neut # (Auto) 2.88 (1.56-6.13) K/mm3 Lymph # (Auto) 1.98 (1.18-3.74) K/mm3 [place] # (Auto) 0.40 H (0.24-0.36) K/mm3 Eos # (Auto) 0.19 (0.04-0.36) K/mm3 Baso # (Auto) 0.03 (0.01-0.08) K/mm3 Sodium 147 H (136-145) mEq/L Potassium 3.4 L (3.5-5.1) mEq/L Chloride 111 H (98-107) mEq/L Carbon Dioxide 28 (21-32) mEq/L Anion Gap 11.4 (5-15) BUN 9 (7-18) mg/dL Creatinine 1.0 (0.55-1.02) mg/dL Est Cr Clr Drug Dosing 74.23 mL/min Estimated GFR (MDRD) > 60 (>60) mL/min BUN/Creatinine Ratio 9.0 L (14-18) Glucose 106 H (70-99) mg/dL Calcium 8.3 L (8.5-10.1) mg/dL Magnesium 1.9 (1.8-2.4) mg/dL Total Bilirubin 0.4 (0.2-1.0) mg/dL AST 18 (15-37) U/L ALT 41 (14-59) U/L Alkaline Phosphatase 59 (46-116) U/L Total Protein 6.9 (6.4-8.2) g/dl Albumin 3.5 (3.4-5.0) g/dl Globulin 3.4 gm/dL Albumin/Globulin Ratio 1.0 (1-2) Meds: Medications Discontinued Medications Generic Name Dose Route Start Last Admin Trade Name Velasquez PRN Reason Stop Dose Admin Lorazepam 1 mg 04/09/21 23:31 04/09/21 23:56 Lorazepam 1 Mg Tab PO 04/09/21 23:32 1 mg ONETIME ONE Administration - Re-Assessments/Exams Free Text/Narrative Re-Assessment/Exam: 04/10/21 00:27 I gave her ativan and checked labs. Her CBC looks good. Her Na was elevated slightly at 147. I will have her call her neurologist tomorrow. She at the max dose of keppra. Departure - Departure Time of Disposition: 00:35 Disposition: Home, Self-Care 01 Condition: Good Clinical Impression: Seizure Tongue laceration Qualifiers: Encounter type: initial encounter Qualified Code(s): S01.512A - Laceration without foreign body of oral cavity, initial encounter - Discharge Information *PRESCRIPTION DRUG MONITORING PROGRAM REVIEWED*: Not Applicable *COPY OF PRESCRIPTION DRUG MONITORING REPORT IN PATIENT ADOLFO: Not Applicable Referrals: Jaclyn Maloney PA-C [Primary Care Provider] - Forms: ED Department Discharge Additional Instructions: Drink plenty of fluids. Try to get enough sleep. Keep taking your keppra as prescribed. Call your neurologist tomorrow and let him know what is going on and see if he wants to add any medications. The lacerations on your tongue from bitting it are superficial and do not need sutures. Try to rinse with water after eating and drinking anything with sugar. Gently brush your teeth a couple times per day. Sepsis Event Note (ED) - Evaluation Sepsis Screening Result: No Definite Risk - Focused Exam Vital Signs: Vital Signs Temp Pulse Resp BP Pulse Ox 04/09/21 23:09 98.4 F 62 15 102/61 95 - My Orders Last 24 Hours: My Active Orders 04/09/21 23:30 Cardiac Monitoring [RC] . DIRECTED - Assessment/Plan Last 24 Hours: My Active Orders 04/09/21 23:30 Cardiac Monitoring [RC] . DIRECTED
== END 2021-04-10 00:40 | disposition home or self-care (01) ==
LOC: JD.ED 22:56
DX: R56.9 Unspecified convulsions (principal); S01.512A Laceration without foreign body of oral cavity, initial encounter; Z79.899 Other long term (current) drug therapy; X58.XXXA Exposure to other specified factors, initial encounter
CPT/HCPCS: 36415; 80053; 83735; 85025; 99284; A9270

== ENCOUNTER 2021-11-19 06:35 | Emergency (ER) | payer MEDICAID ==
[2021-11-19 06:51] VITALS: BP 127/92; PULSE 93
[2021-11-19] MEDS ORDERED: Lidocaine 1% with EPINEPHrine 1:100,000 10 ML MDV INJECT ONE (07:10)
[2021-11-19] MEDS ORDERED: Lidocaine 1% with EPINEPHrine 1:100,000 20 ML MDV ONE (07:16)
[2021-11-19] MEDS ORDERED: Lidocaine 1% with EPINEPHrine 1:100,000 20 ML MDV INJECT ONE (07:19)
== END 2021-11-19 07:54 | disposition home or self-care (01) ==
LOC: JD.ED 06:35
DX: L02.412 Cutaneous abscess of left axilla (principal); F17.210 Nicotine dependence, cigarettes, uncomplicated; Z79.899 Other long term (current) drug therapy
CPT/HCPCS: 10060; 99283; 99283-25

== ENCOUNTER 2021-12-08 14:39 | Emergency (ER) | payer MEDICAID ==
[2021-12-08 15:01] VITALS: BP 119/82; PULSE 100
[2021-12-08 16:08] LABS: ESTIMATED GFR 107 mL/min (>60)
[2021-12-08] MEDS ORDERED: Alum Hydrox/Mag Hydrox/Simeth 30 ML, Lidocaine 2% 15 ML PO ONE ×2 (16:32)
[2021-12-08] MEDS ORDERED: Famotidine 20 MG Tab PO ONE (16:57)
[2021-12-08] MEDS ORDERED: Sucralfate Suspension 1 GM/10 ML Cup PO ONE (16:57)
== END 2021-12-08 17:23 | disposition home or self-care (01) ==
LOC: JD.ED 14:39
DX: R10.13 Epigastric pain (principal); R11.0 Nausea; F17.210 Nicotine dependence, cigarettes, uncomplicated; Z87.19 Personal history of other diseases of the digestive system
CPT/HCPCS: 36415; 80053; 81001; 81025; 83690; 85025; 99284; A9270; 99283

== ENCOUNTER 2022-03-05 21:05 | Emergency (ER) | payer MEDICAID ==
[2022-03-05 21:14] VITALS: BP 117/90; PULSE 98
[2022-03-05] MEDS ORDERED: OXcarbazepine 300 MG Tab PO ONE (21:33)
== END 2022-03-05 21:56 | disposition home or self-care (01) ==
LOC: JD.ED 21:05
DX: Z02.89 Encounter for other administrative examinations (principal); R56.9 Unspecified convulsions; Z72.0 Tobacco use; Z79.899 Other long term (current) drug therapy
CPT/HCPCS: 99282; A9270

== ENCOUNTER 2022-07-01 23:40 | Emergency (ER) | payer MEDICAID ==
[2022-07-02 01:42] VITALS: PULSE 150
== END 2022-07-02 02:00 | disposition home or self-care (01) ==
LOC: JD.ED 23:40
DX: F15.129 Other stimulant abuse with intoxication, unspecified (principal); K21.9 Gastro-esophageal reflux disease without esophagitis; Z79.899 Other long term (current) drug therapy
CPT/HCPCS: 99284

== ENCOUNTER 2022-07-03 17:36 | Emergency (ER) | payer MEDICAID ==
[2022-07-03 17:55] VITALS: BP 109/72; PULSE 67
[2022-07-03] MEDS ORDERED: levETIRAcetam Soln 500 MG/5 ML Cup PO ONE (19:17)
[2022-07-03] MEDS ORDERED: OXcarbazepine 300 MG Tab PO ONE (19:18)
== END 2022-07-03 19:40 | disposition home or self-care (01) ==
LOC: JD.ED 17:36
DX: Z91.14 Patient's other noncompliance with medication regimen (principal); K21.9 Gastro-esophageal reflux disease without esophagitis; Z79.899 Other long term (current) drug therapy
CPT/HCPCS: 99283; A9270

== ENCOUNTER 2022-07-11 15:21 | Emergency (ER) | payer MEDICAID ==
[2022-07-11 15:42] VITALS: PULSE 132
[2022-07-11] MEDS ORDERED: Acetaminophen 325 MG Tab PO ONE (15:52)
[2022-07-11 20:50] VITALS: BP 128/89
== END 2022-07-11 21:11 | disposition home or self-care (01) ==
LOC: JD.ED 15:21
DX: F15.129 Other stimulant abuse with intoxication, unspecified (principal); K21.9 Gastro-esophageal reflux disease without esophagitis; F17.210 Nicotine dependence, cigarettes, uncomplicated; Z79.899 Other long term (current) drug therapy
CPT/HCPCS: 80306; 81025; 93005; 99284; A9270; 93010

== ENCOUNTER 2022-08-14 22:36 | Emergency (ER) | payer MEDICAID ==
[2022-08-14] MEDS ORDERED: Sodium Chloride 0.9% 10 ML Syringe FLUSH PRN (23:00)
[2022-08-14] MEDS ORDERED: levETIRAcetam 500 MG in Sodium Chloride 0.9% 100 ML IV ONE (23:00)
[2022-08-15 01:22] VITALS: BP 117/65; PULSE 90
== END 2022-08-15 01:20 | disposition home or self-care (01) ==
LOC: JD.ED 22:36
DX: S40.011A Contusion of right shoulder, initial encounter (principal); R56.9 Unspecified convulsions; K21.9 Gastro-esophageal reflux disease without esophagitis; Z79.899 Other long term (current) drug therapy; Z72.0 Tobacco use; W06.XXXA Fall from bed, initial encounter
CPT/HCPCS: 36415; 73030; 80053; 85025; 96365; 99284; J1953; J3490

== ENCOUNTER 2023-08-08 09:36 | Emergency (ER) | payer MEDICAID ==
[2023-08-08] MEDS: LORazepam 2 MG/ML SDV IVPUSH ONE (09:53)
[2023-08-08] MEDS: Sodium Chloride 0.9% 10 ML Syringe FLUSH PRN (09:53)
[2023-08-08 09:56] LABS: BASOPHILS PERCENT AUTO 0.6 % (0.0-1.0); EOSINOPHILS ABSOLUTE AUTO 0.2 K/mm3 (0.0-0.4); EOSINOPHILS PERCENT AUTO 3.3 % (0.0-6.0); HEMATOCRIT 40.7 % (37.0-47.0); HEMOGLOBIN 14.2 gm/dl (12.0-16.0); IMMATURE GRAN ABSOLUTE AUTO 0.02 K/mm3 (0.00-0.05); IMMATURE GRAN PERCENT AUTO 0.4 % (0.0-0.4); LYMPHOCYTES ABSOLUTE AUTO 1.9 K/mm3 (1.0-4.8); LYMPHOCYTES PERCENT AUTO 35.3 % (24.0-44.0); MEAN CORPUSCULAR HEMOGLOBIN 31.6 pg (28.0-32.0); MEAN CORPUSCULAR HGB CONC 34.9 g/dl (32.0-36.0); MEAN CORPUSCULAR VOLUME 90.4 fl (83.0-99.0); MEAN PLATELET VOLUME 9.5 fl (9.4-12.3); MONOCYTES ABSOLUTE AUTO 0.4 K/mm3 (0.0-0.8); MONOCYTES PERCENT AUTO 6.5 % (0.0-8.0); NEUTROPHILS ABSOLUTE AUTO 2.9 K/mm3 (1.8-7.7); NEUTROPHILS PERCENT AUTO 53.9 % (41.0-71.0); PLATELET COUNT,PLT 284 K/mm3 (150-400); WHITE BLOOD CELL COUNT,WBC 5.39 K/mm3 (3.9-11.3)
[2023-08-08 10:27] LABS: A/G RATIO 1.2 (1-2); ALBUMIN 4.2 g/dl (3.4-5.0); ANION GAP 16.8 (5-15); BILIRUBIN TOTAL 0.3 mg/dL (0.2-1.0); BUN/CREATININE RATIO 11.1 (14-18); CALCIUM 8.6 mg/dL (8.5-10.1); CREATININE 0.9 mg/dL (0.55-1.02); EST CRCL DRUG DOSING (CG) 83.95 mL/min; MAGNESIUM 1.9 mg/dL (1.8-2.4); POTASSIUM,K 3.8 mEq/L (3.5-5.1); PROTEIN TOTAL,TP 7.6 g/dl (6.4-8.2)
[2023-08-08 12:55] VITALS: BP 112/70; PULSE 77
[2023-08-10 17:41] LABS: KEPPRA 41 ug/mL (10-40)
== END 2023-08-08 12:15 | disposition home or self-care (01) ==
LOC: JD.ED 09:36
DX: R56.9 Unspecified convulsions (principal); R42 Dizziness and giddiness; R51.9 Headache, unspecified
CPT/HCPCS: 36415; 70450; 70450-26; 80053; 80177; 83735; 84484; 85025; 93005; 96374; 99284-25; J2060; J3490

== ENCOUNTER 2024-12-03 11:05 | Emergency (ER) | payer MEDICAID ==
[2024-12-03] MEDS ORDERED: Sodium Chloride 0.9% 10 ML Syringe FLUSH PRN (11:25)
[2024-12-03 11:46] LABS: BASOPHILS PERCENT AUTO 0.6 % (0.0-1.0); EOSINOPHILS ABSOLUTE AUTO 0.1 K/mm3 (0.0-0.4); EOSINOPHILS PERCENT AUTO 2.3 % (0.0-6.0); HEMATOCRIT 37.5 % (37.0-47.0); HEMOGLOBIN 13.2 gm/dl (12.0-16.0); IMMATURE GRAN ABSOLUTE AUTO 0.02 K/mm3 (0.00-0.05); IMMATURE GRAN PERCENT AUTO 0.4 % (0.0-0.4); LYMPHOCYTES ABSOLUTE AUTO 1.3 K/mm3 (1.0-4.8); LYMPHOCYTES PERCENT AUTO 23.5 % (24.0-44.0); MEAN CORPUSCULAR HEMOGLOBIN 30.9 pg (28.0-32.0); MEAN CORPUSCULAR HGB CONC 35.2 g/dl (32.0-36.0); MEAN CORPUSCULAR VOLUME 87.8 fl (83.0-99.0); MEAN PLATELET VOLUME 9.8 fl (9.4-12.3); MONOCYTES ABSOLUTE AUTO 0.5 K/mm3 (0.0-0.8); MONOCYTES PERCENT AUTO 8.9 % (0.0-8.0); NEUTROPHILS ABSOLUTE AUTO 3.4 K/mm3 (1.8-7.7); NEUTROPHILS PERCENT AUTO 64.3 % (41.0-71.0); PLATELET COUNT,PLT 270 K/mm3 (150-400); RED BLOOD CELL COUNT 4.27 M/mm3 (4.10-5.30); WHITE BLOOD CELL COUNT,WBC 5.31 K/mm3 (3.9-11.3)
[2024-12-03 11:52] LABS: APPEARANCE,URINE CLOUDY (Clear); BILIRUBIN,URINE 1+ (Negative); COLOR,URINE RED (Yellow); GLUCOSE,URINE NEGATIVE (Negative); KETONES,URINE TRACE (Negative); LEUKOCYTE ESTERASE,URINE NEGATIVE (Negative); NITRITE,URINE NEGATIVE (Negative); OCCULT BLOOD,URINE 3+ (Negative); PROTEIN,URINE 2+ (Negative); UROBILINOGEN,URINE 0.2 (0.2-1.0)
[2024-12-03 12:02] LABS: RBC,URINE TOO NUMEROUS TO CNT /hpf (0-5)
[2024-12-03 12:05] LABS: BACTERIA,URINE FEW /hpf (FEW); MUCUS,URINE NOT SEEN /hpf (FEW); SQUAMOUS EPITHELIAL CELLS,UR 0-5 /hpf (0-5); WBC,URINE 0-5 /hpf (0-5)
[2024-12-03 12:08] LABS: A/G RATIO 1.1 (1-2); ALBUMIN 3.6 g/dl (3.4-5.0); ANION GAP 12.7 (5-15); BILIRUBIN TOTAL 0.3 mg/dL (0.2-1.0); BUN/CREATININE RATIO 13.8 (14-18); CALCIUM 8.9 mg/dL (8.5-10.1); CREATININE 0.8 mg/dL (0.55-1.02); EST CRCL DRUG DOSING (CG) 89.7 mL/min; POTASSIUM,K 3.7 mEq/L (3.5-5.1); PROTEIN TOTAL,TP 6.9 g/dl (6.4-8.2)
[2024-12-03] MEDS: Sodium Chloride 0.9% 1,000 ML IV STA (12:11)
[2024-12-03 14:05] VITALS: BP 121/71; PULSE 77
== END 2024-12-03 13:50 | disposition home or self-care (01) ==
LOC: JD.ED 11:05
DX: N92.1 Excessive and frequent menstruation with irregular cycle (principal); Z79.899 Other long term (current) drug therapy
CPT/HCPCS: 36415; 76830; 80053; 81001; 85025; 99284; J7030

== ENCOUNTER 2025-01-11 10:23 | Emergency (ER) | payer MEDICAID ==
[2025-01-11] MEDS: Ondansetron 4 MG/2 ML SDV IVPUSH ONE (11:25)
[2025-01-11 11:43] VITALS: BP 109/68; PULSE 52
[2025-01-11 11:49] LABS: A/G RATIO 1.1 (1-2); ALANINE AMINOTRANSFERASE,ALT 16 U/L (14-59); ASPARTATE AMNIOTRANSFERASE,AST 21 U/L (15-37); BILIRUBIN TOTAL 0.3 mg/dL (0.2-1.0); BLOOD UREA NITROGEN,BUN 7 mg/dL (7-18); CARBON DIOXIDE,CO2 22 mEq/L (21-32); CHLORIDE,CL 107 mEq/L (98-107); CREATINE KINASE,CK 82 U/L (26-192); CREATININE 0.7 mg/dL (0.55-1.02); EST CRCL DRUG DOSING (CG) 107.01 mL/min; ESTIMATED GFR 124 mL/min (>60); GLUCOSE RANDOM 96 mg/dL (70-99); PROTEIN TOTAL,TP 6.8 g/dl (6.4-8.2); SODIUM,NA 138 mEq/L (136-145)
[2025-01-11 11:50] LABS: POTASSIUM,K 3.7 mEq/L (3.5-5.1); TROPONIN I HIGH SENSITIVITY < 4 pg/mL (<=51)
[2025-01-11 11:51] LABS: BUPRENORPHINE SCREEN,URINE NEGATIVE (CUTOFF=10); METHADONE SCREEN, URINE NEGATIVE (CUTOFF=200); METHAMPHETAMINES SCREEN, URINE NEGATIVE (CUTOFF=500); OXYCODONE SCREEN,URINE NEGATIVE (CUT0FF=100); THC SCREEN,URINE 20 NG/ML NEGATIVE (CUTOFF=50)
[2025-01-11 11:53] LABS: AMPHETAMINES SCREEN, URINE NEGATIVE (CUTOFF=500)
[2025-01-11 12:10] LABS: BASOPHILS ABSOLUTE AUTO 0.0 K/mm3 (0.0-0.2); BASOPHILS PERCENT AUTO 0.7 % (0.0-1.0); EOSINOPHILS ABSOLUTE AUTO 0.1 K/mm3 (0.0-0.4); EOSINOPHILS PERCENT AUTO 2.2 % (0.0-6.0); IMMATURE GRAN ABSOLUTE AUTO 0.02 K/mm3 (0.00-0.05); IMMATURE GRAN PERCENT AUTO 0.3 % (0.0-0.4); LYMPHOCYTES ABSOLUTE AUTO 1.9 K/mm3 (1.0-4.8); LYMPHOCYTES PERCENT AUTO 32.0 % (24.0-44.0); MEAN PLATELET VOLUME 10.2 fl (9.4-12.3); MONOCYTES ABSOLUTE AUTO 0.4 K/mm3 (0.0-0.8); MONOCYTES PERCENT AUTO 7.1 % (0.0-8.0); NEUTROPHILS ABSOLUTE AUTO 3.4 K/mm3 (1.8-7.7); NEUTROPHILS PERCENT AUTO 57.7 % (41.0-71.0); NRBC ABSOLUTE 0.00 (0.00-0.02); NRBC PERCENT 0.0 % (0.0-0.2); PLATELET COUNT,PLT 247 K/mm3 (150-400); RED BLOOD CELL COUNT 3.78 M/mm3 (4.10-5.30); WHITE BLOOD CELL COUNT,WBC 5.81 K/mm3 (3.9-11.3)
== END 2025-01-11 13:27 | disposition home or self-care (01) ==
LOC: JD.ED 10:23
DX: F45.0 Somatization disorder (principal); Z79.899 Other long term (current) drug therapy; Z86.16 Personal history of COVID-19
CPT/HCPCS: 36415; 80053; 80306; 82550; 83690; 83735; 84484; 84703; 85025; 93005; 96361; 96374; 99285; J2405; J7030; 93010; 99283

== ENCOUNTER 2025-03-23 10:22 | Emergency (ER) | payer MEDICAID ==
[2025-03-23] MEDS ORDERED: Sodium Chloride 0.9% 10 ML Syringe FLUSH PRN (11:16)
[2025-03-23] MEDS: levETIRAcetam 500 MG/5 ML SDV IVPUSH ONE (11:22)
[2025-03-23 11:27] LABS: BASOPHILS ABSOLUTE AUTO 0.0 K/mm3 (0.0-0.2); BASOPHILS PERCENT AUTO 0.6 % (0.0-1.0); EOSINOPHILS ABSOLUTE AUTO 0.3 K/mm3 (0.0-0.4); EOSINOPHILS PERCENT AUTO 4.7 % (0.0-6.0); IMMATURE GRAN ABSOLUTE AUTO 0.02 K/mm3 (0.00-0.05); IMMATURE GRAN PERCENT AUTO 0.3 % (0.0-0.4); LYMPHOCYTES ABSOLUTE AUTO 2.3 K/mm3 (1.0-4.8); LYMPHOCYTES PERCENT AUTO 36.6 % (24.0-44.0); MEAN PLATELET VOLUME 10.3 fl (9.4-12.3); MONOCYTES ABSOLUTE AUTO 0.4 K/mm3 (0.0-0.8); MONOCYTES PERCENT AUTO 6.0 % (0.0-8.0); NEUTROPHILS ABSOLUTE AUTO 3.2 K/mm3 (1.8-7.7); NEUTROPHILS PERCENT AUTO 51.8 % (41.0-71.0); NRBC ABSOLUTE 0.00 (0.00-0.02); NRBC PERCENT 0.0 % (0.0-0.2); RED BLOOD CELL COUNT 4.64 M/mm3 (4.10-5.30); WHITE BLOOD CELL COUNT,WBC 6.17 K/mm3 (3.9-11.3)
[2025-03-23 11:28] LABS: PLATELET COUNT,PLT 352 K/mm3 (150-400)
[2025-03-23 11:52] LABS: A/G RATIO 1.0 (1-2); ALANINE AMINOTRANSFERASE,ALT 23.0 U/L (14-59); ASPARTATE AMNIOTRANSFERASE,AST 17.0 U/L (15-37); BILIRUBIN TOTAL 0.3 mg/dL (0.2-1.0); BLOOD UREA NITROGEN,BUN 9.0 mg/dL (7-18); CARBON DIOXIDE,CO2 22.0 mEq/L (21-32); CHLORIDE,CL 107.0 mEq/L (98-107); CREATININE 1.1 mg/dL (0.55-1.02); EST CRCL DRUG DOSING (CG) 68.1 mL/min; ESTIMATED GFR 72.0 mL/min (>60); GLUCOSE RANDOM 90.0 mg/dL (70-99); POTASSIUM,K 3.9 mEq/L (3.5-5.1); PROTEIN TOTAL,TP 7.1 g/dl (6.4-8.2); SODIUM,NA 141.0 mEq/L (136-145)
[2025-03-23 13:06] VITALS: BP 105/70; PULSE 51
[2025-03-26 04:47] LABS: KEPPRA <2.0 ug/mL (10.0-40.0)
== END 2025-03-23 12:53 | disposition home or self-care (01) ==
LOC: JD.ED 10:22
DX: G40.909 Epilepsy, unspecified, not intractable, without status epilepticus (principal); E86.0 Dehydration; Z86.16 Personal history of COVID-19; Z79.899 Other long term (current) drug therapy
CPT/HCPCS: 36415; 80053; 80177; 83735; 85025; 96361; 96374; 99283; J1953; J7030; 99284

== ENCOUNTER 2025-03-28 21:37 | Emergency (ER) | payer MEDICAID ==
[2025-03-28] MEDS ORDERED: Sodium Chloride 0.9% 10 ML Syringe FLUSH PRN (22:29)
[2025-03-28] MEDS: levETIRAcetam 500 MG/5 ML SDV IVPUSH ONE (22:35)
[2025-03-28 22:36] LABS: BASOPHILS ABSOLUTE AUTO 0.0 K/mm3 (0.0-0.2); BASOPHILS PERCENT AUTO 0.4 % (0.0-1.0); EOSINOPHILS ABSOLUTE AUTO 0.3 K/mm3 (0.0-0.4); EOSINOPHILS PERCENT AUTO 3.8 % (0.0-6.0); IMMATURE GRAN ABSOLUTE AUTO 0.03 K/mm3 (0.00-0.05); IMMATURE GRAN PERCENT AUTO 0.4 % (0.0-0.4); LYMPHOCYTES ABSOLUTE AUTO 2.9 K/mm3 (1.0-4.8); LYMPHOCYTES PERCENT AUTO 37.0 % (24.0-44.0); MEAN PLATELET VOLUME 10.0 fl (9.4-12.3); MONOCYTES ABSOLUTE AUTO 0.5 K/mm3 (0.0-0.8); MONOCYTES PERCENT AUTO 6.3 % (0.0-8.0); NEUTROPHILS ABSOLUTE AUTO 4.0 K/mm3 (1.8-7.7); NEUTROPHILS PERCENT AUTO 52.1 % (41.0-71.0); NRBC ABSOLUTE 0.00 (0.00-0.02); NRBC PERCENT 0.0 % (0.0-0.2); PLATELET COUNT,PLT 360 K/mm3 (150-400); RED BLOOD CELL COUNT 4.77 M/mm3 (4.10-5.30); WHITE BLOOD CELL COUNT,WBC 7.72 K/mm3 (3.9-11.3)
[2025-03-28 22:41] LABS: APPEARANCE,URINE CLEAR (Clear); GLUCOSE,URINE NEGATIVE (Negative); OCCULT BLOOD,URINE TRACE-LYSED (Negative)
[2025-03-28 22:50] LABS: BUPRENORPHINE SCREEN,URINE NEGATIVE (CUTOFF=10); METHADONE SCREEN, URINE NEGATIVE (CUTOFF=200); METHAMPHETAMINES SCREEN, URINE NEGATIVE (CUTOFF=500); OXYCODONE SCREEN,URINE NEGATIVE (CUT0FF=100); THC SCREEN,URINE 20 NG/ML NEGATIVE (CUTOFF=50)
[2025-03-28 22:54] LABS: A/G RATIO 0.9 (1-2); ALANINE AMINOTRANSFERASE,ALT 25.0 U/L (14-59); ASPARTATE AMNIOTRANSFERASE,AST 20.0 U/L (15-37); BILIRUBIN TOTAL 0.2 mg/dL (0.2-1.0); BLOOD UREA NITROGEN,BUN 11.0 mg/dL (7-18); CARBON DIOXIDE,CO2 24.0 mEq/L (21-32); CHLORIDE,CL 104.0 mEq/L (98-107); CREATININE 1.2 mg/dL (0.55-1.02); EST CRCL DRUG DOSING (CG) 62.42 mL/min; ESTIMATED GFR 65.0 mL/min (>60); GLUCOSE RANDOM 94.0 mg/dL (70-99); POTASSIUM,K 4.0 mEq/L (3.5-5.1); PROTEIN TOTAL,TP 7.9 g/dl (6.4-8.2); SODIUM,NA 141.0 mEq/L (136-145)
[2025-03-28 23:04] LABS: AMPHETAMINES SCREEN, URINE NEGATIVE (CUTOFF=500)
[2025-03-28 23:10] LABS: EPITHELIAL CELLS,URINE 0-5 /hpf (0-5)
[2025-03-29 00:48] VITALS: BP 102/74; PULSE 60
== END 2025-03-29 00:40 | disposition home or self-care (01) ==
LOC: JD.ED 21:37
DX: G40.909 Epilepsy, unspecified, not intractable, without status epilepticus (principal); Z79.899 Other long term (current) drug therapy; Z86.16 Personal history of COVID-19
CPT/HCPCS: 36415; 70450; 80053; 80306; 81001; 83735; 84703; 85025; 93005; 96361; 96374; 99284; J1953; J7030; 93010

== ENCOUNTER 2025-04-28 16:00 | Emergency (ER) | payer MEDICAID ==
[2025-04-28 16:20] VITALS: BP 124/85
[2025-04-28 16:43] LABS: BASOPHILS ABSOLUTE AUTO 0.1 K/mm3 (0.0-0.2); BASOPHILS PERCENT AUTO 0.7 % (0.0-1.0); EOSINOPHILS ABSOLUTE AUTO 0.2 K/mm3 (0.0-0.4); EOSINOPHILS PERCENT AUTO 2.8 % (0.0-6.0); IMMATURE GRAN ABSOLUTE AUTO 0.02 K/mm3 (0.00-0.05); IMMATURE GRAN PERCENT AUTO 0.3 % (0.0-0.4); LYMPHOCYTES ABSOLUTE AUTO 1.8 K/mm3 (1.0-4.8); LYMPHOCYTES PERCENT AUTO 26.7 % (24.0-44.0); MEAN PLATELET VOLUME 9.9 fl (9.4-12.3); MONOCYTES ABSOLUTE AUTO 0.4 K/mm3 (0.0-0.8); MONOCYTES PERCENT AUTO 6.3 % (0.0-8.0); NEUTROPHILS ABSOLUTE AUTO 4.4 K/mm3 (1.8-7.7); NEUTROPHILS PERCENT AUTO 63.2 % (41.0-71.0); NRBC ABSOLUTE 0.00 (0.00-0.02); NRBC PERCENT 0.0 % (0.0-0.2); PLATELET COUNT,PLT 268 K/mm3 (150-400); RED BLOOD CELL COUNT 4.17 M/mm3 (4.10-5.30); WHITE BLOOD CELL COUNT,WBC 6.88 K/mm3 (3.9-11.3)
[2025-04-28] MEDS: Ondansetron 4 MG/2 ML SDV IVPUSH ONE (16:44)
[2025-04-28 17:08] LABS: A/G RATIO 1.1 (1-2); ALANINE AMINOTRANSFERASE,ALT 18.0 U/L (14-59); ASPARTATE AMNIOTRANSFERASE,AST 18.0 U/L (15-37); BILIRUBIN TOTAL 0.2 mg/dL (0.2-1.0); BLOOD UREA NITROGEN,BUN 8.0 mg/dL (7-18); CARBON DIOXIDE,CO2 24.0 mEq/L (21-32); CHLORIDE,CL 105.0 mEq/L (98-107); CREATININE 1.1 mg/dL (0.55-1.02); EST CRCL DRUG DOSING (CG) 67.51 mL/min; ESTIMATED GFR 72.0 mL/min (>60); GLUCOSE RANDOM 89.0 mg/dL (70-99); POTASSIUM,K 4.2 mEq/L (3.5-5.1); PROTEIN TOTAL,TP 6.9 g/dl (6.4-8.2); SODIUM,NA 138.0 mEq/L (136-145)
[2025-04-28 19:30] VITALS: PULSE 70
== END 2025-04-28 18:15 | disposition home or self-care (01) ==
LOC: JD.ED 16:00
DX: R56.9 Unspecified convulsions (principal); F17.200 Nicotine dependence, unspecified, uncomplicated; Z79.899 Other long term (current) drug therapy; Z86.16 Personal history of COVID-19
CPT/HCPCS: 36415; 80053; 83735; 85025; 96374; 99284; J2405; J7030; 99283

== ENCOUNTER 2025-05-01 15:30 | Emergency (ER) | payer MEDICAID ==
[2025-05-01] MEDS ORDERED: Sodium Chloride 0.9% 10 ML Syringe FLUSH PRN (15:36)
[2025-05-01] MEDS: levETIRAcetam 500 MG/5 ML SDV IVPUSH ONE ×2 (15:47→18:15)
[2025-05-01 15:57] LABS: BASE EXCESS VENOUS 0.1 (-4.0-2.0); BICARBONATE,VENOUS 23.8 meq/L (22-26); O2 SATURATION VENOUS 75.7; PCO2 VENOUS 35.0 mmHg (41-51); PH,VENOUS 7.44 (7.30-7.40); PO2 VENOUS 42.0 mmHG (40-80)
[2025-05-01 16:01] LABS: BASOPHILS ABSOLUTE AUTO 0.0 K/mm3 (0.0-0.2); BASOPHILS PERCENT AUTO 0.3 % (0.0-1.0); EOSINOPHILS ABSOLUTE AUTO 0.2 K/mm3 (0.0-0.4); EOSINOPHILS PERCENT AUTO 1.9 % (0.0-6.0); IMMATURE GRAN ABSOLUTE AUTO 0.05 K/mm3 (0.00-0.05); IMMATURE GRAN PERCENT AUTO 0.5 % (0.0-0.4); LYMPHOCYTES ABSOLUTE AUTO 1.5 K/mm3 (1.0-4.8); LYMPHOCYTES PERCENT AUTO 15.4 % (24.0-44.0); MEAN PLATELET VOLUME 9.8 fl (9.4-12.3); MONOCYTES ABSOLUTE AUTO 0.5 K/mm3 (0.0-0.8); MONOCYTES PERCENT AUTO 4.7 % (0.0-8.0); NEUTROPHILS ABSOLUTE AUTO 7.7 K/mm3 (1.8-7.7); NEUTROPHILS PERCENT AUTO 77.2 % (41.0-71.0); NRBC ABSOLUTE 0.00 (0.00-0.02); NRBC PERCENT 0.0 % (0.0-0.2); PLATELET COUNT,PLT 278 K/mm3 (150-400); RED BLOOD CELL COUNT 4.45 M/mm3 (4.10-5.30); WHITE BLOOD CELL COUNT,WBC 9.98 K/mm3 (3.9-11.3)
[2025-05-01 16:30] LABS: A/G RATIO 1.0 (1-2); ALANINE AMINOTRANSFERASE,ALT 21 U/L (14-59); ASPARTATE AMNIOTRANSFERASE,AST 17 U/L (15-37); BILIRUBIN TOTAL 0.3 mg/dL (0.2-1.0); BLOOD UREA NITROGEN,BUN 9 mg/dL (7-18); CARBON DIOXIDE,CO2 24 mEq/L (21-32); CHLORIDE,CL 106 mEq/L (98-107); CREATININE 0.9 mg/dL (0.55-1.02); ESTIMATED GFR 91 mL/min (>60); GLUCOSE RANDOM 110 mg/dL (70-99); PHOSPHORUS 2.1 mg/dL (2.6-4.7); POTASSIUM,K 4.2 mEq/L (3.5-5.1); PROTEIN TOTAL,TP 7.1 g/dl (6.4-8.2); SODIUM,NA 141 mEq/L (136-145)
[2025-05-01 16:37] LABS: LACTIC ACID 2.6 mmol/L (0.4-2.0)
[2025-05-01 16:42] LABS: ETHANOL BLOOD MEDICAL 0.00 gm% (0.00); TROPONIN I HIGH SENSITIVITY < 4 pg/mL (<=51)
[2025-05-01 17:10] LABS: APPEARANCE,URINE CLEAR (Clear); GLUCOSE,URINE NEGATIVE (Negative); OCCULT BLOOD,URINE TRACE-LYSED (Negative)
[2025-05-01 17:21] LABS: SQUAMOUS EPITHELIAL CELLS,UR 0-5 /hpf (0-5)
[2025-05-01 17:26] LABS: BUPRENORPHINE SCREEN,URINE NEGATIVE (CUTOFF=10); METHADONE SCREEN, URINE NEGATIVE (CUTOFF=200); METHAMPHETAMINES SCREEN, URINE NEGATIVE (CUTOFF=500); OXYCODONE SCREEN,URINE NEGATIVE (CUT0FF=100); THC SCREEN,URINE 20 NG/ML NEGATIVE (CUTOFF=50)
[2025-05-01 17:27] LABS: AMPHETAMINES SCREEN, URINE NEGATIVE (CUTOFF=500)
[2025-05-01] MEDS: Phosphorus #1 250 MG Tab PO ONE (17:40)
[2025-05-01 19:18] VITALS: BP 118/79; PULSE 77
[2025-05-03 12:52] LABS: KEPPRA 42.5 ug/mL (10.0-40.0)
== END 2025-05-01 19:10 | disposition home or self-care (01) ==
LOC: JD.ED 15:30
DX: G40.909 Epilepsy, unspecified, not intractable, without status epilepticus (principal); K21.9 Gastro-esophageal reflux disease without esophagitis; Z79.899 Other long term (current) drug therapy; Z86.16 Personal history of COVID-19
CPT/HCPCS: 36415; 70486; 71045; 80053; 80177; 80306; 80307; 81001; 82803; 83605; 83735; 84100; 84484; 84703; 85025; 93005; 96374; 96376; 99285; A9270; J1953; J7030